=== PATIENT | male | born 1980 | race Caucasian/White ===

== ENCOUNTER → 2016-05-30 | Outpatient (CLI) | payer OTHER ==
[~2016-05-30] MED LIST: CEPH500C2 PO; CLIN300C2 PO; SULF800T23 PO
[2016-05-30 13:39] LABS: AST/SGOT 29 U/L (15-37); BLOOD UREA NITROGEN 13 mg/dl (7-18); BUN/CREATININE RATIO 12.6 (10-20); CALCIUM 9.6 mg/dl (8.5-10.1); CARBON DIOXIDE 25 mmol/L (21-32); CHLORIDE 108 mmol/L (98-107); GLUCOSE 98 mg/dl (70-99); POTASSIUM 4.3 mmol/L (3.5-5.1); SODIUM 142 mmol/L (136-145)
[2016-05-30 13:49] LABS: ALB/GLOB RATIO 1.2 (0.9-2); ALKALINE PHOSPHATASE 66 U/L (45-117); ALT/SGPT 107 U/L (12-78); CHOLESTEROL 212 mg/dl (0-200); CHOLESTEROL/HDL RATIO 6.4; HDL CHOLESTEROL 33 mg/dl; TRIGLYCERIDES 526 mg/dl (0-150)
== END | disposition home or self-care (01) ==
LOC: C.LABBC 10:15
PROVIDERS: ATTEND Internal Medicine
DX: Z00.00 Encounter for general adult medical examination without abnormal findings (principal); R03.0 Elevated blood-pressure reading, without diagnosis of hypertension

== ENCOUNTER 2016-10-17 21:14 | Emergency (ER) | payer SELFPAY ==
[~2016-10-17] VITALS: Ht 188 cm; Wt 129.9 kg
[2016-10-17 21:19] VITALS: Ht 188 cm; Wt 129.9 kg
[2016-10-17] MEDS ORDERED: CEPHALEXIN 500MG HOME PACK 1 EA BTL PO ONE (21:30)
[2016-10-17] MEDS ORDERED: DIPHTHERIA/TETANUS/PERTUSSIS 0.5 ML SYR/VIAL IM. ONE (21:30)
[2016-10-17] MEDS ORDERED: SEPTRA DS HOME PACK 1 EA VIAL PO ONE (21:30)
[2016-10-17] MEDS ORDERED: SULF800T23 PO (21:45)
[2016-10-17] MEDS ORDERED: CEPH500C2 PO (21:45)
[2016-10-17 21:51] VITALS: BP 152/90; PULSE 106; TEMP 36.6; O2SAT 96
--- NOTE | 2016-10-18 04:10 | EMERGENCY ROOM VISIT NOTE ---
History First contact with patient: 21:21 Chief Complaint: BITE Stated Complaint: BUG BITE,LUMP ON L LEG BEHIND KNEE History of Present Illness The patient is a 36 year old male who presents to the Emergency Room with complaints of left knee bug bite that is now effective for the past few days. He is unsure of his last tetanus. Patient complains of body aches without fever or chills. Patient denies chest pain, dyspnea, fever, chills, cough, congestion. No other concerns per patient. Review of Systems See HPI for pertinent positives & negatives. A total of 10 systems reviewed and were otherwise negative. Past Medical/Surgical History Medical Problems: (1) No Known Active Medical Problems Social History Smoking Status: Current Every Day Smoker Housing Status: lives with family Occupation Status: employed Current/Historical Medications Scheduled Cephalexin Monohydrate (Keflex), 500 MG PO QID Sulfa/Trimethoprim (Bactrim Ds 800MG/160MG), 1 TAB PO BID Allergies Coded Allergies: No Known Allergies (Unverified , 02/25/15) Physical Exam Vital Signs Date Time Temp Pulse Resp B/P (MAP) Pulse Ox O2 Delivery O2 Flow Rate FiO2 10/17/16 21:51 36.6 106 20 152/90 96 10/17/16 21:19 36.6 106 20 152/90 96 Room Air Pain Rating (0-10): 2.0 Physical Exam VITALS: Vitals are noted on the nurse's note and reviewed by myself. Vital signs stable. GENERAL: Pleasant male, in no acute distress, nondiaphoretic, well-developed well-nourished. SKIN: Left posterior knee with insect bite with surrounding erythema and edema concerning for infection with no palpable abscess or lymphangitis Capillary reflex less than 2 seconds. HEENT: Normocephalic. PERRLA. EOMI. Nares patent. Mucous membranes moist. Neck is supple without nuchal rigidity. HEART: Regular rate and rhythm without murmurs gallops or rubs. LUNGS: Clear to auscultation bilaterally without wheezes, rales or rhonchi. No retractions or accessory muscle use. ABDOMEN: Positive bowel sounds x 4. Normal tympanic percussion. Soft, nontender, without masses or organomegaly. Murdock sign negative. No guarding or rebound tenderness. MUSCULOSKELETAL: No gross musculoskeletal defects. No pedal edema. No calf tenderness. Left knee nontender to palpation with full range of motion NEURO: Patient was alert and oriented to person place and time. Normal sensation to light and sharp touch. No focal neurological deficits. Medical Decision & Procedures Medications Administered Medications (Trade) Dose Ordered Sig/Sandra Route Start Time Stop Time Status Last Admin Dose Admin Cephalexin Monohydrate (Keflex 500MG Home Pack) 1 homepack NOW ONCE PO 10/17/16 21:30 10/17/16 21:31 DC 10/17/16 21:41 1 HOMEPACK Trimethoprim/ Sulfamethoxazole (Sulfameth/ Trimeth Ds 800/ 160MG Home Pack) 1 homepack UD ONCE PO 10/17/16 21:30 10/17/16 21:31 DC 10/17/16 21:40 1 HOMEPACK Diphtheria/ Pertussis/Tetanus Vacc (Adacel Inj) 0.5 ml ONCE ONCE IM. 10/17/16 21:30 10/17/16 21:31 DC 10/17/16 21:40 0.5 ML ED Course Prior records reviewed and summarized as above. Triage Nursing notes reviewed. The patient's history was concerning for swelling and redness of the skin. Differential diagnosis: Etiologies such as infected insect bite, cellulitis, abscess, MRSA infection, DVT, necrotizing fasciitis, dermatitis, drug eruption, as well as others were entertained.. Physical examination: The physical examination was consistent with infected insect bite ER treatment provided: Keflex, Bactrim, tetanus On reassessment the patient felt better. Diagnostics interpreted by me: Deferred This appears to be isolated infected insect bite. Patient had no probable abscess or lymphangitis. He was started on antibiotics. He was advised follow- up family care in a few days or here in the ER sooner for fevers, spreading of infection, worsening signs or symptoms or as needed.. By the evaluation outlined above emergent etiologies such as abscess, necrotizing fasciitis, DVT, as well as others were deemed relatively unlikely. The pt informed about the findings as listed above. All questions were answered and pleased with the treatment. Return instructions were outlined and the patient was discharged in stable condition. Outpatient prescription management: Bactrim, Keflex Referral: The patient was referred back to primary care physician for follow-up in 2 to 3 days for a recheck of the current condition. Medical Decision As above Impression Primary Impression: Infected insect bite of leg Departure Information Dispostion Home / Self-Care Condition GOOD Prescriptions Sulfa/Trimethoprim (Bactrim Ds 800MG/160MG) Tab 1 TAB PO BID, #18 TAB Prov: Mary Grace Engle PA-C 10/17/16 Cephalexin Monohydrate (KEFLEX) 500 Mg Cap 500 MG PO QID, #36 CAP Prov: Mary Grace Engle PA-C 10/17/16 Forms HOME CARE DOCUMENTATION FORM, IMPORTANT VISIT INFORMATION Patient Instructions Cellulitis - [facility], [facility] Additional Instructions Cephalexin(Keflex) 500mg: Take one pill four times daily for 10 days for your skin infection. All antibiotics can cause diarrhea. If this occurs and you feel worse or it does not resolve in 1-2 days follow up with your doctor or return to the Emergency Department as this could be signs of serious underlying problems. Any medication can cause an allergic reaction, stop the pills immediately and return to the ER for rash, hives, breathing difficulties, or swelling. Trimethoprim-Sulfamethoxazole(Bactrim DS): Take one pill twice daily for 10 days for your skin infection. All antibiotics can cause diarrhea. If this occurs and you feel worse or it does not resolve in 1-2 days follow up with your doctor or return to the Emergency Department as this could be signs of serious underlying problems. Any medication can cause an allergic reaction, stop the pills immediately and return to the ER for rash, hives, breathing difficulties, or swelling. Ibuprofen(Motrin, Advil) may be used for fever or pain. Use 600mg every six hours as needed. Take with food. Avoid using more than 2400mg in a 24 hour period. Do not use 2400mg per day for more than three consecutive days without physician direction. Prolonged inappropriate use can lead to stomach upset or ulcers. (AND/OR) Acetaminophen(Tylenol) may be used for fever or pain. Use 1000mg every six hours as needed. Avoid using more than 3000mg in a 24 hour period. Warm compresses to the affected area 4 times daily for 15-20 minutes. Rest and drink plenty of fluids. Continue current medications. Return to the ER for severe pain, persistent fevers, spreading redness, or any worsening of your condition. Follow up with your primary physician within 2-3 days for a recheck of the current condition. Problem Qualifiers Primary Impression: Infected insect bite of leg Encounter type: initial encounter Laterality: left Qualified Codes: S80.862A - Insect bite (nonvenomous), left lower leg, initial encounter; L08.9 - Local infection of the skin and subcutaneous tissue, unspecified; W57.XXXA - Bitten or stung by nonvenomous insect and other nonvenomous arthropods, initial encounter
[2016-10-21] MEDS ORDERED: CLIN300C2 PO (08:13)
== END 2016-10-17 21:52 | disposition home or self-care (01) ==
LOC: C.EDB 21:15 → C.EDA 21:52
DX: S80.262A Insect bite (nonvenomous), left knee, initial encounter (principal); L08.9 Local infection of the skin and subcutaneous tissue, unspecified; W57.XXXA Bitten or stung by nonvenomous insect and other nonvenomous arthropods, initial encounter; F17.200 Nicotine dependence, unspecified, uncomplicated; Z23 Encounter for immunization

== ENCOUNTER 2016-10-18 22:37 | Inpatient (IN) | payer SELFPAY ==
[~2016-10-18] VITALS: Ht 188 cm; Wt 128.5 kg
[~2016-10-18 22:37] MED LIST changes: -CLIN300C2 PO
[2016-10-18 22:40] VITALS: Ht 188 cm; Wt 128.5 kg
[2016-10-18 23:38] LABS: HEMATOCRIT 39.6 % (42-52); MEAN CELL VOLUME 89.4 fL (80-100); MEAN CORPUSCULAR HEMOGLOBIN 30.7 pg (25-34); MEAN CORPUSCULAR HGB CONC 34.3 g/dl (32-36); MEAN PLATELET VOLUME 9.6 fL (7.4-10.4); PLATELET COUNT 222 K/uL (130-400); RED BLOOD COUNT 4.43 M/uL (4.7-6.1); WHITE BLOOD COUNT 9.48 K/uL (4.8-10.8)
[2016-10-18 23:50] LABS: PARTIAL THROMBOPLASTIN RATIO 1.2; PROTHROMBIN TIME (PATIENT) 10.3 SECONDS (9.0-12.0)
[2016-10-18 23:57] LABS: CALCIUM 8.7 mg/dl (8.5-10.1); CREATININE 1.1 mg/dl (0.60-1.40); POTASSIUM 3.7 mmol/L (3.5-5.1)
[2016-10-19] VITALS (7 sets, daily range): BP systolic 119–137; BP diastolic 78–82; PULSE 71–105; TEMP 36.7–38.1; O2SAT 94–99
[2016-10-19 00:16] LABS: BASO % 0.1 %; BASO ABS # 0.01 K/uL (0-0.2); COMPLETE YES; EOS % 0.4 %; IG% 0.2 %; LYMPH ABS # 0.85 K/uL (1.2-3.4); MONO % 10.1 %; NEUT % 80.2 %
[2016-10-19] MEDS ORDERED: CEFTRIAXONE SOD INJ 1 GM ADDVIAL IV STA (00:20)
[2016-10-19] MEDS ORDERED: VANCOMYCIN INJ 2,800 MG in SODIUM CHLORIDE 0.9% 500ML 500 ML IV STA (00:20)
[2016-10-19] MEDS ORDERED: KETOROLAC TROMETHAMINE 30 MG/ML VIAL IV STA (00:30)
[2016-10-19] MEDS ORDERED: ONDANSETRON INJ 2 MG/ML 2 ML VIAL IV PRN (01:15)
[2016-10-19] MEDS ORDERED: POLYETHYLENE (MIRALAX) 17 GM PACK PO PRN (01:30)
--- NOTE | 2016-10-19 02:19 | History and Physical ---
History & Physical Date & Time of Service: Oct 19, 2016 at 01:58 Chief Complaint: Cellulitis Primary Care Physician: Dhaval Brown M.D. History of Present Illness Source: patient, parent 36-year-old male with no significant past medical history presented to the ER with complaints of a swelling in the posterior aspect of his knee which started about 2 days ago. The patient stated that the swelling was about the size of the nickel initially and eventually progressed to about half a cent in size. His mother had used a sterile needle and expressed a small quantity of pus and serous drainage. He presented to the ER yesterday and was discharged with Keflex and Bactrim. He presented today with low-grade fever, chills, generalized body aches, nausea and vomiting and a redness around the swelling. He cannot recollect an insect bite. Denies any abdominal pain and diarrhea. Denies any urinary symptoms, coughing or shortness of breath Past Medical/Surgical History Medical Problems: (1) No Known Active Medical Problems Status: Chronic Social History Smoking Status: Current Every Day Smoker Occupational Status: employed [employer]-Drug [employer] History of MDRO: No Allergies Coded Allergies: No Known Allergies (Unverified , 02/25/15) Home Medications Scheduled Cephalexin Monohydrate (Keflex), 500 MG PO QID Sulfa/Trimethoprim (Bactrim Ds 800MG/160MG), 1 TAB PO BID Review of Systems Constitutional: + fever, + chills, + sweats, No weakness Eyes: No worsening of vision ENT: No hearing loss, No unusual epistaxis Respiratory: No cough, No sputum, No shortness of breath Cardiovascular: No chest pain Abdomen: + nausea, + vomiting, No pain, No diarrhea, No constipation Musculoskeletal: + problem reported (swelling and redness posterior knee) Genitourinary - Male: No hematuria Neurologic: No memory loss, No paralysis, No weakness Endocrine: No fatigue Hematologic / Lymphatic: No abnormal bleeding/bruising Integumentary: No rash Physical Exam Vital Signs Date Time Temp Pulse Resp B/P (MAP) Pulse Ox O2 Delivery O2 Flow Rate FiO2 10/19/16 01:48 36.7 91 18 127/79 (95) 94 Room Air 10/19/16 01:28 37.3 89 16 119/73 95 10/19/16 00:51 Room Air 10/19/16 00:40 37.3 93 16 117/66 96 Room Air 10/18/16 22:40 36.9 103 20 144/78 95 Room Air General Appearance: WD/WN, + mild distress Eyes: normal inspection ENT: hearing grossly normal Neck: supple Respiratory/Chest: chest non-tender, lungs clear, normal breath sounds, no respiratory distress, no accessory muscle use Abdomen/GI: normal bowel sounds, soft Back: no CVA tenderness Extremities/Musculoskelatal: no calf tenderness, no pedal edema, + pertinent finding (swelling in the posterior knee area, erythematous, warm and tender to palpation. Underlying fluctuance with serous drainage) Neurologic/Psych: alert, normal mood/affect, oriented x 3 Skin: normal color Diagnostics Laboratory Results Results Past 24 Hours Test 10/18/16 23:20 10/18/16 23:33 Range/Units White Blood Count 9.48 4.8-10.8 K/uL Red Blood Count 4.43 4.7-6.1 M/uL Hemoglobin 13.6 14.0-18.0 g/dL Hematocrit 39.6 42-52 % Mean Corpuscular Volume 89.4 80-100 fL Mean Corpuscular Hemoglobin 30.7 25-34 pg Mean Corpuscular Hemoglobin Concent 34.3 32-36 g/dl Platelet Count 222 130-400 K/uL Mean Platelet Volume 9.6 7.4-10.4 fL Neutrophils (%) (Auto) 80.2 % Lymphocytes (%) (Auto) 9.0 % Monocytes (%) (Auto) 10.1 % Eosinophils (%) (Auto) 0.4 % Basophils (%) (Auto) 0.1 % Neutrophils # (Auto) 7.60 1.4-6.5 K/uL Lymphocytes # (Auto) 0.85 1.2-3.4 K/uL Monocytes # (Auto) 0.96 0.11-0.59 K/uL Eosinophils # (Auto) 0.04 0-0.5 K/uL Basophils # (Auto) 0.01 0-0.2 K/uL RDW Standard Deviation 42.5 36.4-46.3 fL RDW Coefficient of Variation 13.0 11.5-14.5 % Immature Granulocyte % (Auto) 0.2 % Immature Granulocyte # (Auto) 0.02 0.00-0.02 K/uL Prothrombin Time 10.3 9.0-12.0 SECONDS Prothromb Time International Ratio 1.0 0.9-1.1 Activated Partial Thromboplast Time 31.2 21.0-31.0 SECONDS Partial Thromboplastin Ratio 1.2 Sodium Level 139 136-145 mmol/L Potassium Level 3.7 3.5-5.1 mmol/L Chloride Level 105 98-107 mmol/L Carbon Dioxide Level 25 21-32 mmol/L Anion Gap 9.0 3-11 mmol/L Blood Urea Nitrogen 8 7-18 mg/dl Creatinine 1.10 0.60-1.40 mg/dl Est Creatinine Clear Calc Drug Dose 132.0 ml/min Estimated GFR () 99.6 Estimated GFR (Non- 85.9 BUN/Creatinine Ratio 7.0 10-20 Random Glucose 109 70-99 mg/dl Calcium Level 8.7 8.5-10.1 mg/dl Total Bilirubin 0.7 0.2-1 mg/dl Aspartate Amino Transf (AST/SGOT) 62 15-37 U/L Alanine Aminotransferase (ALT/SGPT) 123 12-78 U/L Alkaline Phosphatase 61 45-117 U/L Total Protein 7.5 6.4-8.2 gm/dl Albumin 3.7 3.4-5.0 gm/dl Globulin 3.8 2.5-4.0 gm/dl Albumin/Globulin Ratio 1.0 0.9-2 Hepatitis B Surface Antigen NEG NEG Hepatitis C Antibody NEG NEG Bedside Lactic Acid Venous 1.31 0.90-1.70 mmol/L Microbiology Results 10/18/16 Blood Culture, Received Pending 10/18/16 Blood Culture, Received Pending Impression Assessment and Plan 36-year-old male with no significant past medical history presented to the ER with complaints of a swelling in the posterior aspect of his knee which started about 2 days ago. Failed outpatient treatment with Bactrim and Keflex. Unsure about an insect bite Cellulitis with underlying abscess - Abscess was drained at home with sterile needle - Failed outpatient treatment with Bactrim and Keflex - Started on vancomycin and Rocephin Transaminitis: - AST at 32, ALT at 123 - Denies alcohol abuse - Hepatitis panel ordered History of smoking: Smokes about a pack per day - NicoDerm patch - Smoking cessation counseling DVT prophylaxis: Heparin subcutaneous Full code Disposition: Admitted to [facility] Resident Physician Supervision Note: Pt seen/examined independently. I discussed the case with the resident and agree with the findings and plan as documented in the note. Any exceptions or clarifications are listed here: 36 y/o M smoker - denies additional Hx Pt developed cellulitis and an abscess behind knee - failed outpt Keflex and Bactrim - developed SIRS symptoms OE AAO x 3 S1,2 R CTAB NT, ND + ruptured abscess LLE P; Placed on Ceftriaxone/Vanc pending culture results Smoking cessation Incidental LFT elevation - denies ETOH abuse - check Hep panel - f/u as outpt if stable Documented By: Ghassan Shah Level of Care Med/Surg Resuscitation Status FULL RESUSCITATION VTE Prophylaxis VTE Risk Assessment Done? Y/N: Yes Risk Level: Moderate Given or contraindicated: Unfractionated heparin SQ Resident Tracking Resident Involvement: Resident Care Provided Care Provided: Adult Hospital Medicine
[2016-10-19] MEDS ORDERED: VANCOMYCIN CONSULT ACTIVE PRN (03:00)
--- NOTE | 2016-10-19 03:41 | EMERGENCY ROOM VISIT NOTE ---
History First contact with patient: 22:54 Chief Complaint: BITE Stated Complaint: CELLULITIS History of Present Illness The patient is a 36 year old male who presents to the Emergency Room with complaints of increasing infection to the left leg who was seen by myself yesterday and placed on Keflex and Bactrim. Patient states since that is developed a fever with nausea and vomiting. Patient denies chest pain, dyspnea , abdominal pain, diarrhea, urinary symptoms. He complains of myalgias and arthralgias. He feels as if the infection is getting worse. Review of Systems See HPI for pertinent positives & negatives. A total of 10 systems reviewed and were otherwise negative. Past Medical/Surgical History Medical Problems: (1) Cellulitis (2) No Known Active Medical Problems Social History Smoking Status: Current Every Day Smoker Housing Status: lives with family Occupation Status: employed Current/Historical Medications Scheduled Cephalexin Monohydrate (Keflex), 500 MG PO QID Sulfa/Trimethoprim (Bactrim Ds 800MG/160MG), 1 TAB PO BID Allergies Coded Allergies: No Known Allergies (Unverified , 02/25/15) Physical Exam Vital Signs Date Time Temp Pulse Resp B/P (MAP) Pulse Ox O2 Delivery O2 Flow Rate FiO2 10/19/16 00:51 Room Air 10/19/16 00:40 37.3 93 16 117/66 96 Room Air 10/18/16 22:40 36.9 103 20 144/78 95 Room Air Pain Rating (0-10): 3.0 Physical Exam VITALS: Vitals are noted on the nurse's note and reviewed by myself. Vital signs stable. GENERAL: Pleasant male, in no acute distress, nondiaphoretic, well-developed well-nourished. SKIN: Left leg posterior aspect of knee with cellulitis that has increased from yesterday without lymphangitis without palpable abscess The~ skin was without rashes, erythema, edema, or bruising. There is no tenting of the skin. Capillary reflex less than 2 seconds. HEAD: Normocephalic atraumatic. EARS: External auditory canals clear, tympanic membranes pearly nelson without erythema or effusion bilaterally. EYES: Pupils equal round and reactive to light and accommodation. Conjunctivae without injection, sclerae without icterus. Extraocular movements intact. NOSE: Patent, turbinates without inflammation or discharge. MOUTH: Mucous membranes moist. Pharynx without erythema or exudate. Uvula midline. Airway patent. Tongue does not deviate. NECK: Supple without nuchal rigidity. No lymphadenopathy. No thyromegaly. Cervical spine is nontender. No JVD. HEART: Regular rate and rhythm without murmurs gallops or rubs. LUNGS: Clear to auscultation bilaterally without wheezes, rales or rhonchi. No dullness to percussion. No retractions or accessory muscle use. ABDOMEN: Positive bowel sounds x 4. Normal tympanic percussion. Soft, nontender, without masses or organomegaly. Murdock sign negative. No guarding or rebound tenderness. MUSCULOSKELETAL: No muscle atrophy, erythema, or edema noted. Left knee nontender to palpation. No signs of joint infection. NEURO: Patient was alert and oriented to person place and time. Normal sensation to light and sharp touch. No focal neurological deficits. Medical Decision & Procedures Laboratory Results 10/18/16 23:20 Red Blood Count 4.43, Mean Corpuscular Volume 89.4, Mean Corpuscular Hemoglobin 30.7, Mean Corpuscular Hemoglobin Concent 34.3, Mean Platelet Volume 9.6, Neutrophils (%) (Auto) 80.2, Lymphocytes (%) (Auto) 9.0, Monocytes (%) (Auto) 10.1, Eosinophils (%) (Auto) 0.4, Basophils (%) (Auto) 0.1, Neutrophils # (Auto ) 7.60, Lymphocytes # (Auto) 0.85, Monocytes # (Auto) 0.96, Eosinophils # (Auto ) 0.04, Basophils # (Auto) 0.01 10/18/16 23:20 Test 10/18/16 23:20 10/18/16 23:33 White Blood Count 9.48 K/uL (4.8-10.8) Red Blood Count 4.43 M/uL (4.7-6.1) Hemoglobin 13.6 g/dL (14.0-18.0) Hematocrit 39.6 % (42-52) Mean Corpuscular Volume 89.4 fL (80-100) Mean Corpuscular Hemoglobin 30.7 pg (25-34) Mean Corpuscular Hemoglobin Concent 34.3 g/dl (32-36) Platelet Count 222 K/uL (130-400) Mean Platelet Volume 9.6 fL (7.4-10.4) Neutrophils (%) (Auto) 80.2 % Lymphocytes (%) (Auto) 9.0 % Monocytes (%) (Auto) 10.1 % Eosinophils (%) (Auto) 0.4 % Basophils (%) (Auto) 0.1 % Neutrophils # (Auto) 7.60 K/uL (1.4-6.5) Lymphocytes # (Auto) 0.85 K/uL (1.2-3.4) Monocytes # (Auto) 0.96 K/uL (0.11-0.59) Eosinophils # (Auto) 0.04 K/uL (0-0.5) Basophils # (Auto) 0.01 K/uL (0-0.2) RDW Standard Deviation 42.5 fL (36.4-46.3) RDW Coefficient of Variation 13.0 % (11.5-14.5) Immature Granulocyte % (Auto) 0.2 % Immature Granulocyte # (Auto) 0.02 K/uL (0.00-0.02) Prothrombin Time 10.3 SECONDS (9.0-12.0) Prothromb Time International Ratio 1.0 (0.9-1.1) Activated Partial Thromboplast Time 31.2 SECONDS (21.0-31.0) Partial Thromboplastin Ratio 1.2 Anion Gap 9.0 mmol/L (3-11) Est Creatinine Clear Calc Drug Dose 132.0 ml/min Estimated GFR () 99.6 Estimated GFR (Non- 85.9 BUN/Creatinine Ratio 7.0 (10-20) Calcium Level 8.7 mg/dl (8.5-10.1) Total Bilirubin 0.7 mg/dl (0.2-1) Aspartate Amino Transf (AST/SGOT) 62 U/L (15-37) Alanine Aminotransferase (ALT/SGPT) 123 U/L (12-78) Alkaline Phosphatase 61 U/L (45-117) Total Protein 7.5 gm/dl (6.4-8.2) Albumin 3.7 gm/dl (3.4-5.0) Globulin 3.8 gm/dl (2.5-4.0) Albumin/Globulin Ratio 1.0 (0.9-2) Hepatitis B Surface Antigen NEG (NEG) Hepatitis C Antibody NEG (NEG) Bedside Lactic Acid Venous 1.31 mmol/L (0.90-1.70) Medications Administered Medications (Trade) Dose Ordered Sig/Sandra Route Start Time Stop Time Status Last Admin Dose Admin Ceftriaxone Sodium (Rocephin Inj) 1 gm NOW STAT IV 10/19/16 00:20 10/19/16 00:22 DC 10/19/16 00:28 1 GM Vancomycin HCl 2800 mg/Sodium Chloride 556 ml @ 200 mls/hr ONE STAT IV 10/19/16 00:20 10/19/16 03:06 DC 10/19/16 01:00 200 MLS/HR Ketorolac Tromethamine (Toradol Inj) 30 mg NOW STAT IV 10/19/16 00:30 10/19/16 00:31 DC 10/19/16 00:46 30 MG ED Course Prior records reviewed and summarized as above. Triage Nursing notes reviewed. Additional history obtained from family. The patient's history was concerning for swelling and redness of the skin. Differential diagnosis: Etiologies such as cellulitis, abscess, MRSA infection, DVT, necrotizing fasciitis, dermatitis, drug eruption, as well as others were entertained.. Physical examination: The physical examination was consistent with cellulitis ER treatment provided: Rocephin, vancomycin On reassessment the patient felt better. Diagnostics interpreted by me: The labs revealed negative lactic acid Consultation: A consultation was placed with Dr Shah, hospitalist. The case was discussed and diagnostics were reviewed. The patient was evaluated in the ER for further treatment. This appears to be isolated cellulitis. Patient's infection has spread. He is now displaying systemic symptoms. He will be evaluated by medicine for possible admission. Blood cultures are pending. Negative lactic acid. No lymphangitis. No palpable abscess. By the evaluation outlined above emergent etiologies such as abscess, necrotizing fasciitis, DVT, as well as others were deemed relatively unlikely. The pt informed about the findings as listed above. All questions were answered and pleased with the treatment. case reviewed with my attending Medical Decision As above Impression Primary Impression: Infected insect bite of leg Additional Impressions: Failure of outpatient treatment Cellulitis of left leg Departure Information Dispostion Admitted as an inpatient Condition GOOD Referrals Dhaval Brown M.D. (PCP) Forms HOME CARE DOCUMENTATION FORM, IMPORTANT VISIT INFORMATION Patient Instructions [facility] Problem Qualifiers Primary Impression: Infected insect bite of leg Encounter type: initial encounter Laterality: left Qualified Codes: S80.862A - Insect bite (nonvenomous), left lower leg, initial encounter; L08.9 - Local infection of the skin and subcutaneous tissue, unspecified; W57.XXXA - Bitten or stung by nonvenomous insect and other nonvenomous arthropods, initial encounter
--- NOTE | 2016-10-19 05:56 | Pharmacy Progress Note ---
Pharmacy Abx Initial Consult Date of Service Oct 19, 2016. Pharmacy Dosing Scope Date of Consult: 10/19/16 Consultation requested by: Dr. Mcdaniel Pharmacy is consulted to continue IV Vancomycin dosing therapy, order appropriate labs and adjust drug dose/frequency. Subjective The patient is a 36 year old male admitted on Oct 19, 2016 at 01:08 with a abscess on his left knee. He had presented to the ED yesterday and was released with RX for Bactrim and Keflex. In addition his mother took a sterile needle to the area and produced some pus and blood. He returned today with malaise, fever some nausea & vomiting and is started on Rocephin and Vancomycin. Objective Height (Feet): 6 Height (Inches): 2.00 Weight (Kilograms): 128.500 Vital Signs (Past 12Hrs) Vital Signs Past 12 Hours Date Time Temp Pulse Resp B/P (MAP) Pulse Ox O2 Delivery O2 Flow Rate FiO2 10/19/16 04:41 Room Air 10/19/16 04:19 Room Air 10/19/16 01:48 36.7 91 18 127/79 (95) 94 Room Air 10/19/16 01:28 37.3 89 16 119/73 95 10/19/16 00:51 Room Air 10/19/16 00:40 37.3 93 16 117/66 96 Room Air 10/18/16 22:40 36.9 103 20 144/78 95 Room Air Lab Results (24Hrs) Laboratory Tests (24 Hours) Test 10/18/16 23:20 White Blood Count 9.48 K/uL (4.8-10.8) Red Blood Count 4.43 M/uL (4.7-6.1) L Hemoglobin 13.6 g/dL (14.0-18.0) L Hematocrit 39.6 % (42-52) L Mean Corpuscular Volume 89.4 fL (80-100) Mean Corpuscular Hemoglobin 30.7 pg (25-34) Mean Corpuscular Hemoglobin Concent 34.3 g/dl (32-36) Platelet Count 222 K/uL (130-400) Mean Platelet Volume 9.6 fL (7.4-10.4) Neutrophils (%) (Auto) 80.2 % Lymphocytes (%) (Auto) 9.0 % Monocytes (%) (Auto) 10.1 % Eosinophils (%) (Auto) 0.4 % Basophils (%) (Auto) 0.1 % Neutrophils # (Auto) 7.60 K/uL (1.4-6.5) H Lymphocytes # (Auto) 0.85 K/uL (1.2-3.4) L Monocytes # (Auto) 0.96 K/uL (0.11-0.59) H Eosinophils # (Auto) 0.04 K/uL (0-0.5) Basophils # (Auto) 0.01 K/uL (0-0.2) Micro Results Date/Time Source Procedure Growth Status 10/18/16 23:59 Blood Blood Culture Pending Received 10/18/16 23:20 Blood Blood Culture Pending Received Risk Factors for Resistance * Antimicrobial use within the last 90 days Keflex and Bactrim Assessment & Plan Assessment 36 year old male started on Vancomycin for abscess on his (L) knee Plan Rocephin 1gm IV daily Vancomycin for treatment of the abscess Vancomycin IV * Loading dose: 2800 mg (22 mg/kg) * Maintenance dose: 1700mg IV (13 mg/kg) every 8 hours * Goal trough level for abscess : 15-20 mcg/mL * Trough level ordered prior to noon dose on 10/20/16 * A less than traditional dose and/or extended dosing interval has been selected due to likelihood of drug accumulation in obese patient. I feel he is probably not at baseline renally and I estimated his half life at 6 hours. I think due to his bariatric nature he is prone to accumulation yet he may clear the Vancomycin nicely upon returning to baseline renal. Depending on his renal picture he could potentially handle an every 6 hour interval. Pharmacy will continue to follow and will adjust dose/frequency as necessary. Thank you.
[2016-10-19] MEDS: HEPARIN SOD 5000 UNIT/0.5 ML CARP SQ SCH ×3 (06:00→21:15)
[2016-10-19 06:29] LABS: CREATININE 1.1 mg/dl (0.60-1.40)
[2016-10-19] MEDS: ACETAMINOPHEN 325 MG TAB PO PRN ×3 (06:58→20:48)
[2016-10-19] MEDS: NICOTINE 21 MG/24 HR TDSY TD SCH (08:00)
[2016-10-19] MEDS ORDERED: IBUPROFEN 200 MG TAB PO STA (10:28)
--- NOTE | 2016-10-19 10:36 | Progress Note ---
Subjective Date of Service: Oct 19, 2016. Subjective Pt evaluation today including: conversation w/ patient, physical exam, chart review, lab review, review of studies, review of inpatient medication list Pain: no pain reported PO Intake: good pt is seen and examined by me. Pt is c/o of headache and fever. Pt has spiked a fever this morning an was given a tylenol. Pt denies Cp, Sob, dizziness, palpitation and LOC. Pt denies chills, sweats and rigors. Problem List Medical Problems: (1) Cellulitis of left leg Status: Acute (2) Failure of outpatient treatment Status: Acute (3) Infected insect bite of leg Status: Acute (4) Infected insect bite of leg Status: Acute Review of Systems Constitutional: + fever, No chills, No sweats Respiratory: No cough, No sputum, No wheezing, No shortness of breath, No dyspnea at rest Cardiac: No chest pain, No edema, No claudication Abdomen: No pain, No nausea, No vomiting, No diarrhea Musculoskeletal: + swelling (left popliteal area abscess and erythema and tenderness) Endo: No fatigue Medications Medications (Trade) Dose Ordered Sig/Sandra Route Start Time Stop Time Status Last Admin Dose Admin Ceftriaxone Sodium (Rocephin Inj) 1 gm NOW STAT IV 10/19/16 00:20 10/19/16 00:22 DC 10/19/16 00:28 1 GM Vancomycin HCl 2800 mg/Sodium Chloride 556 ml @ 200 mls/hr ONE STAT IV 10/19/16 00:20 10/19/16 03:06 DC 10/19/16 01:00 200 MLS/HR Ketorolac Tromethamine (Toradol Inj) 30 mg NOW STAT IV 10/19/16 00:30 10/19/16 00:31 DC 10/19/16 00:46 30 MG Acetaminophen (Tylenol Tab) 650 mg Q4H PRN PO 10/19/16 01:15 11/18/16 01:14 10/19/16 06:58 650 MG Objective Vital Signs Date Time Temp Pulse Resp B/P (MAP) Pulse Ox O2 Delivery O2 Flow Rate FiO2 10/19/16 07:11 38.0 105 20 137/78 (97) 99 Room Air 10/19/16 04:41 Room Air 10/19/16 04:19 Room Air 10/19/16 01:48 36.7 91 18 127/79 (95) 94 Room Air 10/19/16 01:28 37.3 89 16 119/73 95 10/19/16 00:51 Room Air 10/19/16 00:40 37.3 93 16 117/66 96 Room Air 10/18/16 22:40 36.9 103 20 144/78 95 Room Air Physical Exam General Appearance: no apparent distress Neck: supple, no adenopathy Respiratory/Chest: chest non-tender, lungs clear, normal breath sounds, no respiratory distress Cardiovascular: regular rate, rhythm, no edema, no gallop, no murmur Abdomen: normal bowel sounds, non tender, soft, no organomegaly Extremities: + pertinent finding ((swelling in the posterior knee area, erythematous, warm and tender to palpation. Underlying fluctuance with serous drainage)) Neurologic/Psychiatric: alert, normal mood/affect, oriented x 3 Skin: no rash Lymphatic: no adenopathy Laboratory Results Last 24 Hours Test 10/18/16 23:20 10/18/16 23:33 10/19/16 05:24 White Blood Count 9.48 K/uL Red Blood Count 4.43 M/uL Hemoglobin 13.6 g/dL Hematocrit 39.6 % Mean Corpuscular Volume 89.4 fL Mean Corpuscular Hemoglobin 30.7 pg Mean Corpuscular Hemoglobin Concent 34.3 g/dl Platelet Count 222 K/uL Mean Platelet Volume 9.6 fL Neutrophils (%) (Auto) 80.2 % Lymphocytes (%) (Auto) 9.0 % Monocytes (%) (Auto) 10.1 % Eosinophils (%) (Auto) 0.4 % Basophils (%) (Auto) 0.1 % Neutrophils # (Auto) 7.60 K/uL Lymphocytes # (Auto) 0.85 K/uL Monocytes # (Auto) 0.96 K/uL Eosinophils # (Auto) 0.04 K/uL Basophils # (Auto) 0.01 K/uL RDW Standard Deviation 42.5 fL RDW Coefficient of Variation 13.0 % Immature Granulocyte % (Auto) 0.2 % Immature Granulocyte # (Auto) 0.02 K/uL Prothrombin Time 10.3 SECONDS Prothromb Time International Ratio 1.0 Activated Partial Thromboplast Time 31.2 SECONDS Partial Thromboplastin Ratio 1.2 Sodium Level 139 mmol/L Potassium Level 3.7 mmol/L Chloride Level 105 mmol/L Carbon Dioxide Level 25 mmol/L Anion Gap 9.0 mmol/L Blood Urea Nitrogen 8 mg/dl Creatinine 1.10 mg/dl 1.10 mg/dl Est Creatinine Clear Calc Drug Dose 132.0 ml/min 132.3 ml/min Estimated GFR () 99.6 99.6 Estimated GFR (Non- 85.9 85.9 BUN/Creatinine Ratio 7.0 Random Glucose 109 mg/dl Calcium Level 8.7 mg/dl Total Bilirubin 0.7 mg/dl Aspartate Amino Transf (AST/SGOT) 62 U/L Alanine Aminotransferase (ALT/SGPT) 123 U/L Alkaline Phosphatase 61 U/L Total Protein 7.5 gm/dl Albumin 3.7 gm/dl Globulin 3.8 gm/dl Albumin/Globulin Ratio 1.0 Hepatitis B Surface Antigen NEG Hepatitis C Antibody NEG Bedside Lactic Acid Venous 1.31 mmol/L Assessment and Plan Cellulitis with underlying abscess - Abscess was drained at home with sterile needle? - Failed outpatient treatment with Bactrim and Keflex - Started on vancomycin and Rocephin however discuss with pharmacy to broader the coverage, pt is spiking fever while on antibiotics. - We will discontinue rocephin and add clindamycin along with cefepime. Fever - spike fever 38, possible need broader coverage - blood cultures pending - Prn Tylenol Transaminitis: - AST at 32, ALT at 123 - Denies alcohol abuse - Hepatitis panel negative - Repeat CMP. History of smoking: Smokes about a pack per day - NicoDerm patch - Smoking cessation counseling DVT prophylaxis: Heparin subcutaneous Full code Continued [facility] stay due to: multiple IV medications needed Discharge planning: home
[2016-10-19] MEDS: CEFEPIME IV 2000 MG in DEXTROSE 5% 100ML IV SCH (10:51)
[2016-10-19] MEDS ORDERED: CEFTRIAXONE SOD INJ 1 GM in DEXTROSE 5% ADD-VANTAGE 50ML 50 ML IV SCH (11:00)
[2016-10-19 11:02] LABS: BASO % 0.1 %; BASO ABS # 0.01 K/uL (0-0.2); COMPLETE YES; EOS % 0.3 %; HEMATOCRIT 37.2 % (42-52); IG% 0.1 %; LYMPH % 9.2 %; MEAN CELL VOLUME 90.3 fL (80-100); MEAN CORPUSCULAR HEMOGLOBIN 31.3 pg (25-34); MEAN CORPUSCULAR HGB CONC 34.7 g/dl (32-36); MEAN PLATELET VOLUME 9.2 fL (7.4-10.4); MONO % 9.9 %; NEUT % 80.4 %; PLATELET COUNT 192 K/uL (130-400); RED BLOOD COUNT 4.12 M/uL (4.7-6.1); WHITE BLOOD COUNT 8.66 K/uL (4.8-10.8)
[2016-10-19 11:41] LABS: BUN/CREATININE RATIO 8.9 (10-20); CALCIUM 8.4 mg/dl (8.5-10.1); CREATININE 1.1 mg/dl (0.60-1.40); POTASSIUM 3.7 mmol/L (3.5-5.1)
[2016-10-19] MEDS: CLINDAMYCIN IV 900 MG in DEXTROSE 5% ADD-VANTAGE 100ML 100 ML IV SCH ×2 (11:42→19:50)
[2016-10-19 11:51] LABS: ALB/GLOB RATIO 0.9 (0.9-2)
[2016-10-19] MEDS ORDERED: NURSING VERBAL MED ORDER ONE (12:00)
[2016-10-19] MEDS ORDERED: MoRPHine SULFATE 2 MG/ML CARP IV STA (12:07)
[2016-10-19] MEDS: VANCOMYCIN INJ 1,700 MG in SODIUM CHLORIDE 0.9% 500ML 500 ML IV SCH ×2 (12:52→21:14)
[2016-10-20] MEDS: CEFEPIME IV 2000 MG in DEXTROSE 5% 100ML IV SCH ×3 (00:04→22:39)
[2016-10-20] MEDS ORDERED: KETOROLAC TROMETHAMINE 30 MG/ML VIAL IV STA (00:38)
[2016-10-20] MEDS: CLINDAMYCIN IV 900 MG in DEXTROSE 5% ADD-VANTAGE 100ML 100 ML IV SCH ×3 (04:21→19:41)
[2016-10-20] MEDS: VANCOMYCIN INJ 1,700 MG in SODIUM CHLORIDE 0.9% 500ML 500 ML IV SCH ×3 (04:21→19:40)
[2016-10-20] MEDS: HEPARIN SOD 5000 UNIT/0.5 ML CARP SQ SCH ×3 (05:53→21:19)
[2016-10-20 07:20] LABS: BASO % 0.4 %; BASO ABS # 0.02 K/uL (0-0.2); COMPLETE YES; EOS % 2.1 %; HEMATOCRIT 36.6 % (42-52); IG% 0.2 %; LYMPH ABS # 1.32 K/uL (1.2-3.4); MEAN CORPUSCULAR HEMOGLOBIN 31.1 pg (25-34); MEAN CORPUSCULAR HGB CONC 34.2 g/dl (32-36); MEAN PLATELET VOLUME 9.9 fL (7.4-10.4); MONO % 21.2 %; NEUT % 51.1 %; PLATELET COUNT 201 K/uL (130-400); RED BLOOD COUNT 4.02 M/uL (4.7-6.1); WHITE BLOOD COUNT 5.29 K/uL (4.8-10.8)
[2016-10-20 07:47] VITALS: BP 122/81; PULSE 74; TEMP 36.9; O2SAT 98
[2016-10-20] MEDS: NICOTINE 21 MG/24 HR TDSY TD SCH (07:47)
[2016-10-20 07:52] LABS: BUN/CREATININE RATIO 12.4 (10-20); CALCIUM 8.6 mg/dl (8.5-10.1); CREATININE 0.87 mg/dl (0.60-1.40); POTASSIUM 3.8 mmol/L (3.5-5.1)
[2016-10-20 07:55] LABS: ALB/GLOB RATIO 0.9 (0.9-2)
[2016-10-20 08:00] VITALS: O2SAT 98
[2016-10-20] MEDS ORDERED: KETOROLAC TROMETHAMINE 30 MG/ML VIAL ONE (08:19)
[2016-10-20] MEDS ORDERED: NURSING VERBAL MED ORDER ONE (08:30)
[2016-10-20] MEDS ORDERED: CEFTRIAXONE SOD INJ 1 GM in DEXTROSE 5% ADD-VANTAGE 50ML 50 ML IV SCH (11:00)
[2016-10-20] MEDS ORDERED: VANCOMYCIN TROUGH SCH (11:30)
--- NOTE | 2016-10-20 14:46 | Pharmacy Progress Note ---
Pharmacy Abx Dose Progress Nt Date of Service Oct 20, 2016. Pharmacy Dosing Scope The patient is currently receiving the following antimicrobial agents per Pharmacy consult: Vancomycin 1700mg mg (~13.2 mg/kg) IV every 8 hours Objective Height (Feet): 6 Height (Inches): 2.00 Weight (Kilograms): 128.500 Vital Signs (Past 12Hrs) Vital Signs Past 12 Hours Date Time Temp Pulse Resp B/P (MAP) Pulse Ox O2 Delivery O2 Flow Rate FiO2 10/20/16 08:00 98 Room Air 10/20/16 07:47 36.9 74 18 122/81 (95) 98 Room Air Lab Results (24Hrs) Laboratory Tests (24 Hours) Item Value Date Time Vancomycin Level Trough 14.3 mcg/ml 10/20/16 1155 Test 10/20/16 06:25 White Blood Count 5.29 K/uL (4.8-10.8) Red Blood Count 4.02 M/uL (4.7-6.1) L Hemoglobin 12.5 g/dL (14.0-18.0) L Hematocrit 36.6 % (42-52) L Mean Corpuscular Volume 91.0 fL (80-100) Mean Corpuscular Hemoglobin 31.1 pg (25-34) Mean Corpuscular Hemoglobin Concent 34.2 g/dl (32-36) Platelet Count 201 K/uL (130-400) Mean Platelet Volume 9.9 fL (7.4-10.4) Neutrophils (%) (Auto) 51.1 % Lymphocytes (%) (Auto) 25.0 % Monocytes (%) (Auto) 21.2 % Eosinophils (%) (Auto) 2.1 % Basophils (%) (Auto) 0.4 % Neutrophils # (Auto) 2.71 K/uL (1.4-6.5) Lymphocytes # (Auto) 1.32 K/uL (1.2-3.4) Monocytes # (Auto) 1.12 K/uL (0.11-0.59) H Eosinophils # (Auto) 0.11 K/uL (0-0.5) Basophils # (Auto) 0.02 K/uL (0-0.2) Micro Results Date/Time Source Procedure Growth Status 10/18/16 23:59 Blood Blood Culture - Preliminary NO GROWTH TO DATE. Resulted 10/18/16 23:20 Blood Blood Culture - Preliminary NO GROWTH TO DATE. Resulted Risk Factors for Resistance * Failing outpatient antimicrobial course with this infection initiated 1 day COLLECTIONS REPRESENTATIVE Assessment & Plan Assessment The patient is a 36 year old male admitted on Oct 19, 2016 at 01:08 with a abscess on his left knee. He had presented to the ED yesterday and was released with RX for Bactrim and Keflex. In addition his mother took a sterile needle to the area and produced some pus and blood. He returned today with malaise, fever some nausea & vomiting and is started on IV Vancomycin, Clindamycin and Cefepime Patient with BMI 36.4 kg/m2 thus will anticipate the potential for IV Vancomycin to accumulate during this course of therapy. For this reason, a lower maintenance dose of ~13 mg/kg has been chosen. Day # 2 Vancomycin of antimicrobial therapy Plan Vancomycin IV * Trough level of 14.3 mcg/mL is closely approaching the therapeutic range. * Continue dose of 1700 mg (~13 mg/kg) IV every 8 hours * Goal trough level for Cellulitis/abscess: 15 to 20 mcg/mL * Due to potential for drug accumulation in patients with BMI above 30 kg/m2, will repeat trough in ~ 48 hours * Trough or random level ordered for: Thursday10/22/16 prior to the noon dose Pharmacy will continue to follow and will adjust dose/frequency as necessary. Thank you.
[2016-10-20 15:10] VITALS: BP 125/78; PULSE 73; TEMP 36.7; O2SAT 96
--- NOTE | 2016-10-20 15:52 | Medical Student: [facility] ---
Med Student Progress Note Date of Service Oct 20, 2016. Subjective 36 y/o male with no significant pmh who presented on thursday and then thursday with worsening cellulitis of posterior aspect of left knee and generalized fever , myalgias, sweats. He has been afebrile with no acute events overnight. He feels better today, and his knee is no longer in pain. He has been able to ambulate on it. He complains of itchiness. He denies any systemic symptoms. He denies noticing any tick or bug/spider bites. He was sitting outside mid-last week in shorts and suspects this may have been when the event occurred. Review of Systems Constitutional: No fever, No chills ENT: No sore throat Respiratory: No cough, No sputum, No wheezing, No shortness of breath Cardiac: No chest pain, No edema Abdomen: No pain, No nausea, No vomiting, No diarrhea, No constipation Musculoskeletal: No joint pain, No muscle pain, No swelling Male : No dysuria Heme: No abnormal bleeding/bruising Skin: + itch, No rash, No new/changing skin lesions, No color change Objective Vital Signs Date Time Temp Pulse Resp B/P (MAP) Pulse Ox O2 Delivery O2 Flow Rate FiO2 10/20/16 15:10 36.7 73 18 125/78 (94) 96 Room Air 10/20/16 08:00 98 Room Air 10/20/16 07:47 36.9 74 18 122/81 (95) 98 Room Air 10/19/16 23:59 Room Air 10/19/16 23:54 36.9 71 18 119/78 (92) 97 Room Air 10/19/16 20:00 Room Air 10/19/16 16:22 Room Air Physical Exam General Appearance: WD/WN, no apparent distress Neck: supple, no adenopathy, thyroid normal, no JVD Respiratory/Chest: chest non-tender, lungs clear, normal breath sounds, no respiratory distress, no accessory muscle use Cardiovascular: regular rate, rhythm, no edema, no JVD, no murmur Abdomen: normal bowel sounds, non tender, soft, no organomegaly Extremities: no pedal edema, no calf tenderness, + pertinent finding (left leg demonstrating ~5 inch diameter of surrounding erythema around central lesion. Central lesion has savage exudate and moist appearance. ) Neurologic/Psychiatric: alert, normal mood/affect, oriented x 3 Skin: normal color, warm/dry, no rash Lymphatic: no adenopathy Laboratory Results Last 24 Hours Test 10/20/16 06:25 10/20/16 11:55 White Blood Count 5.29 K/uL Red Blood Count 4.02 M/uL Hemoglobin 12.5 g/dL Hematocrit 36.6 % Mean Corpuscular Volume 91.0 fL Mean Corpuscular Hemoglobin 31.1 pg Mean Corpuscular Hemoglobin Concent 34.2 g/dl Platelet Count 201 K/uL Mean Platelet Volume 9.9 fL Neutrophils (%) (Auto) 51.1 % Lymphocytes (%) (Auto) 25.0 % Monocytes (%) (Auto) 21.2 % Eosinophils (%) (Auto) 2.1 % Basophils (%) (Auto) 0.4 % Neutrophils # (Auto) 2.71 K/uL Lymphocytes # (Auto) 1.32 K/uL Monocytes # (Auto) 1.12 K/uL Eosinophils # (Auto) 0.11 K/uL Basophils # (Auto) 0.02 K/uL RDW Standard Deviation 44.3 fL RDW Coefficient of Variation 13.3 % Immature Granulocyte % (Auto) 0.2 % Immature Granulocyte # (Auto) 0.01 K/uL Sodium Level 140 mmol/L Potassium Level 3.8 mmol/L Chloride Level 106 mmol/L Carbon Dioxide Level 26 mmol/L Anion Gap 8.0 mmol/L Blood Urea Nitrogen 11 mg/dl Creatinine 0.87 mg/dl Est Creatinine Clear Calc Drug Dose 167.3 ml/min Estimated GFR () 128.7 Estimated GFR (Non- 111.0 BUN/Creatinine Ratio 12.4 Random Glucose 101 mg/dl Calcium Level 8.6 mg/dl Total Bilirubin 0.7 mg/dl Aspartate Amino Transf (AST/SGOT) 54 U/L Alanine Aminotransferase (ALT/SGPT) 123 U/L Alkaline Phosphatase 51 U/L Total Protein 6.5 gm/dl Albumin 3.0 gm/dl Globulin 3.5 gm/dl Albumin/Globulin Ratio 0.9 Vancomycin Level Trough 14.3 mcg/ml Medications Medications Administered Medications (Trade) Dose Ordered Sig/Sandra Route Start Time Stop Time Status Last Admin Dose Admin Ceftriaxone Sodium (Rocephin Inj) 1 gm NOW STAT IV 10/19/16 00:20 10/19/16 00:22 DC 10/19/16 00:28 1 GM Vancomycin HCl 2800 mg/Sodium Chloride 556 ml @ 200 mls/hr ONE STAT IV 10/19/16 00:20 10/19/16 03:06 DC 10/19/16 01:00 200 MLS/HR Ketorolac Tromethamine (Toradol Inj) 30 mg NOW STAT IV 10/19/16 00:30 10/19/16 00:31 DC 10/19/16 00:46 30 MG Acetaminophen (Tylenol Tab) 650 mg Q4H PRN PO 10/19/16 01:15 11/18/16 01:14 10/19/16 20:48 650 MG Ondansetron HCl (Zofran Inj) 4 mg Q6H PRN IV 10/19/16 01:15 11/18/16 01:14 10/19/16 12:10 4 MG Vancomycin HCl 1700 mg/Sodium Chloride 534 ml @ 200 mls/hr Q8H IV 10/19/16 12:00 10/29/16 11:59 10/20/16 11:54 200 MLS/HR Cefepime HCl 2000 mg/Dextrose 112.5 ml @ 225 mls/hr Q12H IV 10/19/16 11:00 10/29/16 10:59 10/20/16 11:22 225 MLS/HR Clindamycin Phosphate 900 mg/ Dextrose 106 ml @ 106 mls/hr Q8H IV 10/19/16 12:00 10/29/16 11:59 10/20/16 11:54 106 MLS/HR Ibuprofen (Advil Tab) 400 mg NOW STAT PO 10/19/16 10:28 10/19/16 10:35 DC 10/19/16 10:56 400 MG Morphine Sulfate (MoRPHine SULFATE INJ) 2 mg NOW STAT IV 10/19/16 12:07 10/19/16 12:08 DC 10/19/16 12:12 2 MG Ketorolac Tromethamine (Toradol Inj) 30 mg NOW STAT IV 10/20/16 00:38 10/20/16 00:49 DC 10/20/16 00:57 30 MG Ketorolac Tromethamine (Toradol Inj) 30 mg STK-MED ONCE .ROUTE 10/20/16 08:19 10/20/16 08:20 DC 10/20/16 08:21 30 MG Assessment and Plan Assessment and Plan: This is a 36 y/o male with cellulitis of left knee. 1. Cellulitis left knee -continue IV vancomycin, clindamycin, cefepime -consult wound care nurses for eval of possible debridement/cleaning of wound -continue to monitor until tomorrow -acetaminophen 650 mg q4hr prn 2. Elevated transaminases -trending down, continue to monitor 3. DVT prophylaxis -Heparin subq Continued [facility] stay due to: multiple IV medications needed Discharge planning: home
[2016-10-20 16:00] VITALS: O2SAT 96
--- NOTE | 2016-10-20 18:18 | Progress Note ---
Subjective Date of Service: Oct 20, 2016. Subjective pt states hs somatic symptoms have improved, leg less painful and overall feels better, some scant drainage from wound Problem List Medical Problems: (1) Cellulitis of left leg Status: Acute (2) Failure of outpatient treatment Status: Acute (3) Infected insect bite of leg Status: Acute (4) Infected insect bite of leg Status: Acute Review of Systems Constitutional: No fever, No chills Respiratory: No cough, No sputum Cardiac: No chest pain, No orthopnea Abdomen: No pain, No nausea, No constipation Musculoskeletal: + joint pain, + muscle pain Psychiatric: No depression symptoms, No anhedonism Skin: + rash, + new/changing skin lesions, + color change Objective Vital Signs Date Time Temp Pulse Resp B/P (MAP) Pulse Ox O2 Delivery O2 Flow Rate FiO2 10/20/16 07:47 36.9 74 18 122/81 (95) 98 Room Air 10/19/16 23:59 Room Air 10/19/16 23:54 36.9 71 18 119/78 (92) 97 Room Air 10/19/16 20:00 Room Air 10/19/16 16:22 Room Air 10/19/16 15:44 37.5 78 18 127/82 (97) 97 Room Air 10/19/16 13:36 37.8 10/19/16 11:47 37.4 10/19/16 10:29 38.1 Physical Exam General Appearance: WD/WN, + mild distress Neck: supple, no JVD Respiratory/Chest: chest non-tender, lungs clear, normal breath sounds Cardiovascular: regular rate, rhythm, no murmur Abdomen: normal bowel sounds, non tender, soft Extremities: no pedal edema, no calf tenderness Neurologic/Psychiatric: alert, oriented x 3 Skin: + pertinent finding (1x5 cm open area with macerated tissue and 2 cm surrounding erythmea in left pop fossa, no flucutance or lymphangitic streaking) Laboratory Results Last 24 Hours Test 10/19/16 10:55 10/20/16 06:25 White Blood Count 8.66 K/uL 5.29 K/uL Red Blood Count 4.12 M/uL 4.02 M/uL Hemoglobin 12.9 g/dL 12.5 g/dL Hematocrit 37.2 % 36.6 % Mean Corpuscular Volume 90.3 fL 91.0 fL Mean Corpuscular Hemoglobin 31.3 pg 31.1 pg Mean Corpuscular Hemoglobin Concent 34.7 g/dl 34.2 g/dl Platelet Count 192 K/uL 201 K/uL Mean Platelet Volume 9.2 fL 9.9 fL Neutrophils (%) (Auto) 80.4 % 51.1 % Lymphocytes (%) (Auto) 9.2 % 25.0 % Monocytes (%) (Auto) 9.9 % 21.2 % Eosinophils (%) (Auto) 0.3 % 2.1 % Basophils (%) (Auto) 0.1 % 0.4 % Neutrophils # (Auto) 6.95 K/uL 2.71 K/uL Lymphocytes # (Auto) 0.80 K/uL 1.32 K/uL Monocytes # (Auto) 0.86 K/uL 1.12 K/uL Eosinophils # (Auto) 0.03 K/uL 0.11 K/uL Basophils # (Auto) 0.01 K/uL 0.02 K/uL RDW Standard Deviation 43.2 fL 44.3 fL RDW Coefficient of Variation 13.0 % 13.3 % Immature Granulocyte % (Auto) 0.1 % 0.2 % Immature Granulocyte # (Auto) 0.01 K/uL 0.01 K/uL Sodium Level 140 mmol/L 140 mmol/L Potassium Level 3.7 mmol/L 3.8 mmol/L Chloride Level 105 mmol/L 106 mmol/L Carbon Dioxide Level 24 mmol/L 26 mmol/L Anion Gap 11.0 mmol/L 8.0 mmol/L Blood Urea Nitrogen 10 mg/dl 11 mg/dl Creatinine 1.10 mg/dl 0.87 mg/dl Est Creatinine Clear Calc Drug Dose 132.3 ml/min 167.3 ml/min Estimated GFR () 99.6 128.7 Estimated GFR (Non- 85.9 111.0 BUN/Creatinine Ratio 8.9 12.4 Random Glucose 119 mg/dl 101 mg/dl Calcium Level 8.4 mg/dl 8.6 mg/dl Total Bilirubin 0.7 mg/dl 0.7 mg/dl Aspartate Amino Transf (AST/SGOT) 66 U/L 54 U/L Alanine Aminotransferase (ALT/SGPT) 136 U/L 123 U/L Alkaline Phosphatase 57 U/L 51 U/L Total Protein 7.2 gm/dl 6.5 gm/dl Albumin 3.5 gm/dl 3.0 gm/dl Globulin 3.7 gm/dl 3.5 gm/dl Albumin/Globulin Ratio 0.9 0.9 Assessment and Plan Cellulitis with underlying abscess left leg failing outpt treatment - Abscess was drained at home with sterile needle? - Failed outpatient treatment with Bactrim and Keflex now on clindamycin along with cefepime. blood cultures are negative, if remain so will consider outpt clinda and close follow up Transaminitis: maybe from stress infection History of smoking: NicoDerm patch - Smoking cessation counseling DVT prophylaxis: Heparin subcutaneous Full code Continued [facility] stay due to: multiple IV medications needed Discharge planning: home
[2016-10-20 23:33] VITALS: BP 114/69; PULSE 74; TEMP 36.7; O2SAT 96
[2016-10-21] MEDS: VANCOMYCIN INJ 1,700 MG in SODIUM CHLORIDE 0.9% 500ML 500 ML IV SCH ×2 (04:11→11:41)
[2016-10-21] MEDS: CLINDAMYCIN IV 900 MG in DEXTROSE 5% ADD-VANTAGE 100ML 100 ML IV SCH ×2 (04:11→11:41)
[2016-10-21] MEDS ORDERED: KETOROLAC TROMETHAMINE 30 MG/ML VIAL IV STA (04:35)
[2016-10-21] MEDS: HEPARIN SOD 5000 UNIT/0.5 ML CARP SQ SCH ×2 (04:50→04:56)
[2016-10-21] MEDS: NICOTINE 21 MG/24 HR TDSY TD SCH (07:10)
[2016-10-21 07:21] VITALS: BP 126/75; PULSE 68; TEMP 36.5; O2SAT 96
[2016-10-21 07:58] LABS: BASO % 0.5 %; BASO ABS # 0.03 K/uL (0-0.2); COMPLETE YES; EOS % 2.9 %; HEMATOCRIT 34.4 % (42-52); IG% 0.2 %; LYMPH % 36.4 %; LYMPH ABS # 2.24 K/uL (1.2-3.4); MEAN CELL VOLUME 88.9 fL (80-100); MEAN CORPUSCULAR HEMOGLOBIN 30.5 pg (25-34); MEAN CORPUSCULAR HGB CONC 34.3 g/dl (32-36); MEAN PLATELET VOLUME 9.6 fL (7.4-10.4); PLATELET COUNT 210 K/uL (130-400); RED BLOOD COUNT 3.87 M/uL (4.7-6.1); WHITE BLOOD COUNT 6.16 K/uL (4.8-10.8)
[2016-10-21 08:00] VITALS: O2SAT 96
[2016-10-21 08:12] LABS: ALB/GLOB RATIO 0.8 (0.9-2); BUN/CREATININE RATIO 10.4 (10-20); CREATININE 0.98 mg/dl (0.60-1.40); POTASSIUM 3.8 mmol/L (3.5-5.1)
[2016-10-21] MEDS ORDERED: CLIN300C2 PO (08:13)
--- NOTE | 2016-10-21 08:14 | Discharge Instructions ---
Discharge Instructions Date of Service Oct 21, 2016. Admission Reason for Admission: Cellulitis Discharge Discharge Diagnosis / Problem: leg cellulitis Discharge Goals Goal(s): Diagnostic testing, Therapeutic intervention Activity Recommendations Activity Limitations: resume your previous activity . Instructions / Follow-Up Instructions / Follow-Up Keep wound clean and dry wash once a day or more with soap and water, use antibiotic ointment until skin is closed change dressing more often if becomes wet or soiled follow up with your family doctor for a wound check in one week Current Hospital Diet Patient's current hospital diet: Regular Diet Discharge Diet Recommended Diet: Regular Diet Pending Studies Studies pending at discharge: no Medical Emergencies . Who to Call and When: Medical Emergencies: If at any time you feel your situation is an emergency, please call 911 immediately. . Non-Emergent Contact Non-Emergency issues call your: Primary Care Provider Call Non-Emergent contact if: temperature is above 101, your pain is unusual for you . . "Provider Documentation" section prepared by Grant Powell. . VTE Core Measure Inpt VTE Proph given/why not?: Unfractionated heparin SQ
--- NOTE | 2016-10-21 08:44 | Medical Student: [facility] ---
Med Student Progress Note Date of Service Oct 21, 2016. Subjective Feeling well overall today. He has not had any systemic symptoms or fever for past few days. He denies pain at wound site, but does still note some itching. Had nurse clean wound yesterday evening and use topical bacitracin. Review of Systems Constitutional: No fever, No chills, No sweats ENT: No tinnitus Respiratory: No cough, No sputum, No shortness of breath Cardiac: No chest pain Abdomen: No pain, No nausea, No vomiting, No diarrhea Musculoskeletal: No joint pain, No muscle pain Male : No dysuria Heme: No abnormal bleeding/bruising Skin: + itch, No rash Objective Vital Signs Date Time Temp Pulse Resp B/P (MAP) Pulse Ox O2 Delivery O2 Flow Rate FiO2 10/21/16 08:00 96 Room Air 10/21/16 07:21 36.5 68 18 126/75 (92) 96 Room Air 10/21/16 00:00 Room Air 10/20/16 23:33 36.7 74 16 114/69 (84) 96 Room Air 10/20/16 16:00 96 Room Air 10/20/16 15:10 36.7 73 18 125/78 (94) 96 Room Air Physical Exam General Appearance: WD/WN, no apparent distress Respiratory/Chest: chest non-tender, lungs clear, normal breath sounds Cardiovascular: regular rate, rhythm, no edema, no gallop, no JVD Abdomen: normal bowel sounds, non tender, soft Extremities: normal range of motion, non-tender, + pertinent finding (left popliteal fossa lesion 1x5cm with reduced erythema surrounding central lesion. Center appears to be healing well with minimal drainage at this time. No lymphangitic spread or swelling noted. ) Neurologic/Psychiatric: alert, normal mood/affect, oriented x 3 Skin: normal color, warm/dry Lymphatic: no adenopathy Laboratory Results Last 24 Hours Test 10/20/16 11:55 10/21/16 07:05 Vancomycin Level Trough 14.3 mcg/ml White Blood Count 6.16 K/uL Red Blood Count 3.87 M/uL Hemoglobin 11.8 g/dL Hematocrit 34.4 % Mean Corpuscular Volume 88.9 fL Mean Corpuscular Hemoglobin 30.5 pg Mean Corpuscular Hemoglobin Concent 34.3 g/dl Platelet Count 210 K/uL Mean Platelet Volume 9.6 fL Neutrophils (%) (Auto) 48.0 % Lymphocytes (%) (Auto) 36.4 % Monocytes (%) (Auto) 12.0 % Eosinophils (%) (Auto) 2.9 % Basophils (%) (Auto) 0.5 % Neutrophils # (Auto) 2.96 K/uL Lymphocytes # (Auto) 2.24 K/uL Monocytes # (Auto) 0.74 K/uL Eosinophils # (Auto) 0.18 K/uL Basophils # (Auto) 0.03 K/uL RDW Standard Deviation 43.2 fL RDW Coefficient of Variation 13.3 % Immature Granulocyte % (Auto) 0.2 % Immature Granulocyte # (Auto) 0.01 K/uL Sodium Level 142 mmol/L Potassium Level 3.8 mmol/L Chloride Level 108 mmol/L Carbon Dioxide Level 23 mmol/L Anion Gap 11.0 mmol/L Blood Urea Nitrogen 10 mg/dl Creatinine 0.98 mg/dl Est Creatinine Clear Calc Drug Dose 148.5 ml/min Estimated GFR () 114.5 Estimated GFR (Non- 98.8 BUN/Creatinine Ratio 10.4 Random Glucose 103 mg/dl Total Bilirubin 0.4 mg/dl Aspartate Amino Transf (AST/SGOT) 74 U/L Alanine Aminotransferase (ALT/SGPT) 139 U/L Alkaline Phosphatase 55 U/L Total Protein 6.8 gm/dl Albumin 3.0 gm/dl Globulin 3.8 gm/dl Albumin/Globulin Ratio 0.8 Chemistry Specimen Hemolysis Medications Medications Administered Medications (Trade) Dose Ordered Sig/Sandra Route Start Time Stop Time Status Last Admin Dose Admin Ceftriaxone Sodium (Rocephin Inj) 1 gm NOW STAT IV 10/19/16 00:20 10/19/16 00:22 DC 10/19/16 00:28 1 GM Vancomycin HCl 2800 mg/Sodium Chloride 556 ml @ 200 mls/hr ONE STAT IV 10/19/16 00:20 10/19/16 03:06 DC 10/19/16 01:00 200 MLS/HR Ketorolac Tromethamine (Toradol Inj) 30 mg NOW STAT IV 10/19/16 00:30 10/19/16 00:31 DC 10/19/16 00:46 30 MG Heparin Sodium (Porcine) (Heparin Sq 5000 Unit/0.5ml) 5,000 unit Q8H SQ 10/19/16 06:00 7/11/17 05:59 10/21/16 04:56 5,000 UNIT Acetaminophen (Tylenol Tab) 650 mg Q4H PRN PO 10/19/16 01:15 11/18/16 01:14 10/19/16 20:48 650 MG Ondansetron HCl (Zofran Inj) 4 mg Q6H PRN IV 10/19/16 01:15 11/18/16 01:14 10/19/16 12:10 4 MG Vancomycin HCl 1700 mg/Sodium Chloride 534 ml @ 200 mls/hr Q8H IV 10/19/16 12:00 10/29/16 11:59 10/21/16 04:11 200 MLS/HR Cefepime HCl 2000 mg/Dextrose 112.5 ml @ 225 mls/hr Q12H IV 10/19/16 11:00 10/29/16 10:59 10/20/16 22:39 225 MLS/HR Clindamycin Phosphate 900 mg/ Dextrose 106 ml @ 106 mls/hr Q8H IV 10/19/16 12:00 10/29/16 11:59 10/21/16 04:11 106 MLS/HR Ibuprofen (Advil Tab) 400 mg NOW STAT PO 10/19/16 10:28 10/19/16 10:35 DC 10/19/16 10:56 400 MG Morphine Sulfate (MoRPHine SULFATE INJ) 2 mg NOW STAT IV 10/19/16 12:07 10/19/16 12:08 DC 10/19/16 12:12 2 MG Ketorolac Tromethamine (Toradol Inj) 30 mg NOW STAT IV 10/20/16 00:38 10/20/16 00:49 DC 10/20/16 00:57 30 MG Ketorolac Tromethamine (Toradol Inj) 30 mg STK-MED ONCE .ROUTE 10/20/16 08:19 10/20/16 08:20 DC 10/20/16 08:21 30 MG Ketorolac Tromethamine (Toradol Inj) 30 mg NOW STAT IV 10/21/16 04:35 10/21/16 04:39 DC 10/21/16 04:50 30 MG Assessment and Plan Assessment and Plan: 36 y/o male with cellulitis of left popliteal fossa. At this time all systemic symptoms have resolved and wound is healing well. Cultures continue to be negative. Cellulitis, left popliteal fossa. -May continue on oral clindamycin 300 mg PO four times a day x7days -d/c iv vanc and cefapime -follow up with pcp in 5 days Discharge:HOME Continued [facility] stay due to: multiple IV medications needed Discharge planning: home
[2016-10-21] MEDS: CEFEPIME IV 2000 MG in DEXTROSE 5% 100ML IV SCH (10:31)
[2016-10-21 11:39] VITALS: BP 126/75; PULSE 68; TEMP 36.5; O2SAT 96
--- NOTE | 2016-10-21 18:47 | Discharge Summary ---
Discharge Summary Date of Service Oct 21, 2016. Discharge Summary Admission Date: Oct 19, 2016 at 01:08 Discharge Date: Oct 21, 2016 Discharge Disposition: Home Principal Diagnosis: left leg cellulitis Medication Reconciliation New Medications: Clindamycin Hcl (Cleocin) 300 Mg Cap 300 MG PO TID for 10 Days, #30 CAP Discontinued Medications: Cephalexin Monohydrate (Keflex) 500 Mg Cap 500 MG PO QID, #36 CAP Sulfa/Trimethoprim (Bactrim Ds 800MG/160MG) Tab 1 TAB PO BID, #18 TAB Discharge Exam Review of Systems: Constitutional: No fever, No chills Respiratory: No cough, No sputum Integumentary: + problem reported (skin area less red, some crusting, no pain) Physical Exam: General Appearance: WD/WN, no apparent distress Neck: supple, no JVD Respiratory/Chest: chest non-tender, lungs clear, normal breath sounds Cardiovascular: regular rate, rhythm, no murmur Hospital Course Cellulitis with underlying abscess left leg failing outpt treatment - Abscess was drained at home with sterile needle? then neosporin applied, some people do have dermitis from neosporin, improved with inpatient treatment, will have home on clindamycin after treatment with clinda/Cefepime IV Transaminitis: from stress infection, recommended alcohol cessation and pcp follow up History of smoking: NicoDerm patch - Smoking cessation counseling Total Time Spent: Greater than 30 minutes This includes examination of the patient, discharge planning, medication reconciliation, and communication with other providers. Discharge Instructions Please refer to the electronic Patient Visit Report (Discharge Instructions) for additional information.
[2016-10-22] MEDS ORDERED: VANCOMYCIN TROUGH SCH (11:30)
== END 2016-10-21 13:00 | disposition home or self-care (01) | DRG 603 ==
LOC: C.EDB 22:37 → C.MS4W 10-19 01:08 → ENRESERV 10-19 01:22
PROVIDERS: ADMIT Family Medicine; ATTEND Internal Medicine
DX: L03.116 Cellulitis of left lower limb (principal); L02.416 Cutaneous abscess of left lower limb; S80.869A Insect bite (nonvenomous), unspecified lower leg, initial encounter; R74.0 Nonspecific elevation of levels of transaminase and lactic acid dehydrogenase [LDH]; F17.200 Nicotine dependence, unspecified, uncomplicated; Z51.81 Encounter for therapeutic drug level monitoring; W57.XXXA Bitten or stung by nonvenomous insect and other nonvenomous arthropods, initial encounter; Y99.8 Other external cause status

== ENCOUNTER 2017-01-31 17:45 | Emergency (ER) | payer SELFPAY ==
[~2017-01-31] VITALS: Ht 182.9 cm; Wt 129.7 kg
[2017-01-31 17:47] VITALS: TEMP 36.7; Ht 182.9 cm; Wt 129.7 kg
--- NOTE | 2017-01-31 18:03 | EMERGENCY ROOM VISIT NOTE ---
History Report prepared by Kyleeibridge: Carmita Fischer Under the Supervision of: Dr. Tom Brandon D.O. First contact with patient: 17:53 Chief Complaint: RECTAL BLEEDING Stated Complaint: DISCOMFORT AND BLEEDING FROM THE BUTT HOLE AREA History of Present Illness The patient is a 36 year old male who presents to the Emergency Room with complaints of persistent rectal bleeding for the past 2 days. He reports he has also experienced rectal pain for the past 4 days, and rates his discomfort as a 6/10 in severity. He admits he has felt a swollen bulge in his anal area. He tried placing hemorrhoid cream on the area, and states it provided some pain relief. He denies any recent weakness. Source of History: patient Onset: 2 days [employer]YSICAL [employer]ER[employer]ID[employer] Position: other (rectum) Quality: other (rectal bleeding) Timing: other (persistent) Associated Symptoms: No weakness Review of Systems See HPI for pertinent positives & negatives. A total of 10 systems reviewed and were otherwise negative. Past Medical & Surgical Medical Problems: (1) Cellulitis (2) No Known Active Medical Problems Family History Diabetes mellitus Heart disease Hypertension Social History Smoking Status: Current Every Day Smoker Alcohol Use: occasionally Drug Use: none Marital Status: single Housing Status: lives with family Occupation Status: employed Current/Historical Medications No Active Prescriptions or Reported Meds Allergies Coded Allergies: No Known Allergies (Unverified , 02/25/15) Physical Exam Vital Signs Date Time Temp Pulse Resp B/P (MAP) Pulse Ox O2 Delivery O2 Flow Rate FiO2 01/31/17 19:08 92 18 134/104 95 01/31/17 17:47 36.7 84 20 128/74 97 Room Air Physical Exam GENERAL: Patient is awake, alert, in no acute distress, patient is resting comfortably and showing no signs of anxiety EYES: The conjunctivae are clear. The pupils are round and reactive. EARS, NOSE, MOUTH AND THROAT: The nose is without any evidence of any deformity. Mucous membranes are moist tongue is midline NECK: The neck is nontender and supple. RESPIRATORY: Normal respiratory effort is noted there is no evidence of wheezing rhonchi or rales CARDIOVASCULAR: Regular rate and rhythm noted there no murmurs rubs or gallops normal S1 normal S2 GASTROINTESTINAL: The abdomen is soft. Bowel sounds are present in all quadrants. Abdomen is nontender PELVIS: The Pelvis is stable. No tenderness to palpation is noted. RECTAL: Large hemorrhoid, actively bleeding. No thrombosed hemorrhoid was noted. BACK: No midline tenderness or or step-off noted range of motion in flexion extension as well as rotation no signs of muscle spasm noted MUSCULOSKELETAL/EXTREMITIES: There is no evidence of gross deformity full range of motion is noted in the hips and shoulders SKIN: There is no obvious evidence of any rash. There are no petechiae, pallor or cyanosis noted. NEUROLOGIC: Patient is awake alert and oriented x3 strength is symmetric patellar reflexes are 2+ bilaterally Medical Decision & Procedures ED Course 1757: The patient was evaluated in room C5. A complete history and physical examination were performed. 1849: I reevaluated the patient. He is feeling well and resting comfortably. I discussed his results and discharge instructions and he verbalized complete understanding and agreement. Medical Decision Prior records/ancillary studies reviewed. Triage Nursing notes reviewed. The patient's history was concerning for possible gastrointestinal bleeding. Differential diagnosis: Etiologies such as diverticulosis, AVM, coagulopathy, colitis, inflammatory bowel disease, malignancy, Dejah-Lester tear, esophagitis, peptic ulcer disease , variceal bleed, gastritis, epistaxis, fissure, hemorrhoids, as well as others were entertained. The patient is a 36-year-old male who presented to the emergency department for evaluation of rectal bleeding and rectal pain. He appears to have a bleeding external hemorrhoid which is the source of the bleeding. This does not appear to be a thrombosed hemorrhoid at this time but it possibly could represent a thrombosed hemorrhoid which spontaneously ruptured. He was encouraged to continue using [id number] medications as prescribed and follow-up with the on-call general surgeon for further evaluation. He was also encouraged to return to the emergency department immediately if symptoms change worsen or the need arises. Medication Reconcilliation Current Medication List: was personally reviewed by me Blood Pressure Screening Patient's blood pressure: Normal blood pressure Blood pressure disposition: Did not require urgent referral Impression Primary Impression: Bleeding hemorrhoids Scribe Attestation The scribe's documentation has been prepared under my direction and personally reviewed by me in its entirety. I confirm that the note above accurately reflects all work, treatment, procedures, and medical decision making performed by me. Departure Information Dispostion Home / Self-Care Prescriptions No Active Prescriptions or Reported Meds Referrals No Doctor, Assigned (PCP) Patient Instructions Hemorrhoids, My [facility] Additional Instructions Continue to put hemorrhoid cream to the area 3-4 times a day. Call the general surgeon to schedule a follow-up appointment. Continue all medications as prescribed.
[2017-01-31 19:08] VITALS: BP 134/104; PULSE 92; O2SAT 95
== END 2017-01-31 19:08 | disposition home or self-care (01) ==
LOC: C.EDB 17:47 → C.EDC 19:08
DX: K64.4 Residual hemorrhoidal skin tags (principal); Z86.19 Personal history of other infectious and parasitic diseases; F17.200 Nicotine dependence, unspecified, uncomplicated; Z83.3 Family history of diabetes mellitus; Z82.49 Family history of ischemic heart disease and other diseases of the circulatory system

== ENCOUNTER → 2017-07-07 | Outpatient (CLI) | payer BC ==
--- NOTE | 2017-07-07 12:23 | DIAGNOSTIC IMAGING REPORT ---
ULTRASOUND L VENOUS DOPP LOWER EXT UNILAT CLINICAL HISTORY: L LEG PAIN COMPARISON STUDY: No previous studies for comparison. FINDINGS: Real-time and color flow Doppler imaging were performed. Flow was seen within the femoral, popliteal and calf veins with no intraluminal thrombus demonstrated. The saphenous vein is patent. IMPRESSION: No evidence of left lower extremity DVT. Electronically signed by: Lucas Chen M.D. 07/07/2017 12:21 PM Dictated Date/Time: 07/07/2017 12:21 PM
== END | disposition home or self-care (01) ==
LOC: C.ULTR 11:11
PROVIDERS: ATTEND Physician Assistant
DX: M79.605 Pain in left leg (principal)

== ENCOUNTER 2021-10-05 18:54 | Observation (INO) ==
[2021-10-05] MEDS ORDERED: SODIUM CHLORIDE 0.9% 1000ML 1,000 ML IV STA (19:26)
--- NOTE | 2021-10-05 19:43 | Emergency Department Note ---
Impression & Plan Right sided abdominal pain, Acute appendicitis ED Provider Note NAME: CASE SPENCER JR AGE: 41 SEX: M : 1980 ARRIVES VIA: Walk-In INFORMANT: [Patient] ED PROVIDER(S): [Davey Elena MD] CHIEF COMPLAINT: Abdominal pain HISTORY OF PRESENT ILLNESS: The patient is a 41-year-old male presents to the ER with complaints of primarily right-sided abdominal pain. The pain started last evening, has been present for about 24 hours. The pain is a 4 or 5 on a scale of 1-10. The pain is worse when he moves certain ways or bends over. He has felt some increased pain with a deep breath even. There has been no nausea or diarrhea. No fever, no urinary complaints. The pain does not change when he eats. He has not suffered any trauma. He has no history of previous abdominal surgery. He has tried ibuprofen with no help with the discomfort. REVIEW OF SYSTEMS: See HPI for pertinent positives and negatives. A total of ten systems were reviewed and were otherwise negative. PMHx/PSHx: See Below SOCIAL HISTORY: See Below. PHYSICAL EXAM: GENERAL: Patient is in no acute distress. HEENT: No acute trauma, normocephalic atraumatic, mucous membranes moist, no nasal congestion, no scleral icterus. NECK: No stridor, no adenopathy, no meningismus, trachea is midline. LUNGS: Clear to auscultation bilaterally, no wheeze, no rhonchi, breath sounds equal. HEART: Without murmurs gallops or rubs, regular rate and rhythm. ABDOMEN: Soft, mildly tender in the right upper quadrant, significantly tender in the right lower quadrant, bowel sounds positive. EXTREMITIES: No cyanosis or edema, full range of motion of all the joints without pain or difficulty, no signs for acute trauma. NEUROLOGIC: Oriented x 3, no acute motor or sensory deficits, no focal weakness. SKIN: No rash, no jaundice, no diaphoresis. DIFFERENTIAL DIAGNOSIS: Appendicitis, testicular torsion, diverticulitis, UTI, obstruction, mesenteric ischemia, aortic pathology, inflammatory bowel disease, renal colic, PUD, pancreatitis, biliary pathology, hernia, volvulus, constipation, as well as other pathologies. EMERGENCY DEPARTMENT COURSE/PROCEDURES: MEDICAL DECISION MAKING: There is no leukocytosis. A very mild anemia was noted. There was a normal platelet count. No renal failure or significant electrolyte abnormality. No concerning liver enzyme elevation. No evidence for pancreatitis. Urinalysis did not show hematuria or infection. COVID test returned negative. Abdominal and pelvis CT shows early appendicitis. On exam, the patient was tender in the right lower quadrant, he was not toxic or febrile. Patient was given IV saline, 1 L, he did not want anything for pain. Patient has acute appendicitis, this explains his discomfort. I did contact general surgery, Dr. Pereira. The patient is going to the operating room for surgical intervention. The patient is aware of his findings, case management has been involved. Past Med/Surg History Medical History Asthma BMI 36.0-36.9,adult Elevated BP without diagnosis of hypertension Elevated LFTs Seasonal allergies Tobacco use Surgical History History of lymph node excision 2008 History of tonsillectomy and adenoidectomy 1988 Family History Mother Anxiety Depression Hypertension Sister Depression Father Hypertension Hearing loss Brother Hypertension Other Alcohol abuse Cardiac disorder Diabetes Kidney disease No family history of adverse response to anesthesia No family history of bleeding disorder Denies family history of Ovarian cancer Prostate cancer Breast cancer Colorectal cancer Social History Smoking Status: Current every day smoker Tobacco Type: Cigarettes Hx Alcohol Use: Yes Hx Substance Use: No Preferred Language: Swedish marital status: Single Current Living Situation: Family current occupational status: unemployed Feels Safe at Home: Yes Dental Care, Regularly: No Physical Activity Frequency: 1-2 Times per Week Allergies Allergies Allergy/AdvReac Type Severity Reaction Status Date / Time No Known Allergies Allergy Verified 10/05/21 21:14 Home Meds Home Medications Medication Instructions Recorded Confirmed ibuprofen 200 mg tablet 1,000 mg PO DAILY PRN 10/05/21 10/05/21 multivitamin 1 tab PO DAILY 10/05/21 10/05/21 Previous Rx's Medication Instructions Recorded lisinopril 40 mg tablet 40 mg PO DAILY #90 tab 08/16/21 amlodipine 5 mg tablet 5 mg PO DAILY #30 tab 09/11/21 Results & Data (ED) Vital Signs Vital Signs - 24 hr 10/05/21 18:55 10/05/21 20:55 10/05/21 22:00 Temperature 36.3 C L Temperature Source Temporal Artery Scan Pulse Rate 79 Pulse Rate [Apical] 70 78 Pulse Rhythm [Apical] Pulse Strength [Apical] Respiratory Rate 16 16 14 Respiratory Effort / Characteristics Non-Labored Spontaneous Respiratory Depth Normal Respiratory Pattern Blood Pressure 146/88 H Blood Pressure [Left Arm] 150/92 H 145/88 H Blood Pressure Mean 107 Blood Pressure Mean [Left Arm] 111 107 Blood Pressure Position Sitting Blood Pressure Position [Left Arm] Pulse Oximetry 98 98 98 Oxygen Delivery Method Room Air Room Air Room Air Oxygen Flow Rate Sepsis Recent Fever Within 48 Hours No Sepsis New/Unexplained Change in Mental Status N/A Sepsis Action Taken by Nursing No Action Required 10/05/21 23:59 10/06/21 00:05 10/06/21 00:15 Temperature 36.1 C L Temperature Source Temporal Artery Scan Pulse Rate Pulse Rate [Apical] 73 70 70 Pulse Rhythm [Apical] Regular Regular Regular Pulse Strength [Apical] Normal Normal Normal Respiratory Rate 14 15 13 Respiratory Effort / Characteristics Non-Labored Spontaneous Non-Labored Spontaneous Non-Labored Spontaneous Respiratory Depth Normal Normal Normal Respiratory Pattern Regular Regular Regular Blood Pressure Blood Pressure [Left Arm] 124/78 129/82 124/78 Blood Pressure Mean Blood Pressure Mean [Left Arm] 93 97 93 Blood Pressure Position Blood Pressure Position [Left Arm] Lying Lying Lying Pulse Oximetry 99 99 99 Oxygen Delivery Method Oxymask Oxymask Oxymask Oxygen Flow Rate 6 6 6 Sepsis Recent Fever Within 48 Hours Sepsis New/Unexplained Change in Mental Status Sepsis Action Taken by Nursing 10/06/21 00:25 Temperature 36.6 C Temperature Source Oral Pulse Rate Pulse Rate [Apical] 70 Pulse Rhythm [Apical] Regular Pulse Strength [Apical] Normal Respiratory Rate 15 Respiratory Effort / Characteristics Non-Labored Spontaneous Respiratory Depth Normal Respiratory Pattern Regular Blood Pressure Blood Pressure [Left Arm] 125/77 Blood Pressure Mean Blood Pressure Mean [Left Arm] 93 Blood Pressure Position Blood Pressure Position [Left Arm] Lying Pulse Oximetry 93 Oxygen Delivery Method Room Air Oxygen Flow Rate Sepsis Recent Fever Within 48 Hours Sepsis New/Unexplained Change in Mental Status Sepsis Action Taken by [facility] Medications Current Medication List: was personally reviewed by me Laboratory Data Attestation: I reviewed the patient's lab results. Result diagrams: 10/05/21 19:30 10/05/21 19:30 Lab Results 10/05/21 10/05/21 10/05/21 Range/Units 19:30 19:30 19:40 WBC 9.81 (4.8-10.8) K/uL RBC 4.22 L (4.7-6.1) M/uL Hgb 13.6 L (14.0-18.0) g/dL Hct 39.5 L (42-52) % MCV 93.6 (80-100) fL MCH 32.2 (25-34) pg MCHC 34.4 (32-36) g/dL RDW Std Deviation 45.2 (36.4-46.3) fL RDW Coeff of Moisés 13.2 (11.5-14.5) % Plt Count 306 (130-400) K/uL MPV 10.1 (7.4-10.4) fL Immature Gran % (Auto) 0.2 % Neut % (Auto) 57.0 % Lymph % (Auto) 32.0 % [place] % (Auto) 8.4 % Eos % (Auto) 2.2 % Baso % (Auto) 0.2 % Neut # (Auto) 5.59 (1.4-6.5) K/uL Lymph # (Auto) 3.14 (1.2-3.4) K/uL [place] # (Auto) 0.82 H (0.11-0.59) K/uL Eos # (Auto) 0.22 (0-0.5) K/uL Baso # (Auto) 0.02 (0-0.2) K/uL Immature Gran # (Auto) 0.02 (0.00-0.02) K/uL Sodium 139 (136-145) mmol/L Potassium 4.0 (3.5-5.1) mmol/L Chloride 106 (98-107) mmol/L Carbon Dioxide 24 (21-32) mmol/L Anion Gap 9 (3-11) BUN 16 (6-23) mg/dl Creatinine 0.98 (0.6-1.4) mg/dl Est Cr Clr Drug Dosing 140.6 ml/min Est GFR ( Amer) 110.5 ml/min Est GFR (Non-Af Amer) 95.4 ml/min BUN/Creatinine Ratio 16.3 (10-20) Glucose 80 (70-99(Fasting)) mg/dl Calcium 9.7 (8.5-10.1) mg/dl Total Bilirubin 0.5 (0.2-1.0) mg/dl AST 31 (13-39) U/L ALT 54 H (7-52) U/L Alkaline Phosphatase 55 (34-104) U/L Total Protein 7.2 (6.0-8.3) gm/dl Albumin 4.5 (3.4-5.0) gm/dl Globulin 2.7 (2.5-4.0) gm/dl Albumin/Globulin Ratio 1.7 (0.9-2) Lipase 30 (11-82) U/L Urine Color Urine Appearance (Clear) Urine pH (4.5-7.5) Ur Specific [place] (1.000-1.030) Urine Protein (Negative) Urine Glucose (UA) (Negative) Urine Ketones (Negative) Urine Blood (Negative) Urine Nitrite (Negative) Urine Bilirubin (Negative) Urine Urobilinogen (Negative) Ur Leukocyte Esterase (Negative) SARS-CoV-2, RNA, NAAT NEGATIVE (NEGATIVE) 10/05/21 Range/Units 20:59 WBC (4.8-10.8) K/uL RBC (4.7-6.1) M/uL Hgb (14.0-18.0) g/dL Hct (42-52) % MCV (80-100) fL MCH (25-34) pg MCHC (32-36) g/dL RDW Std Deviation (36.4-46.3) fL RDW Coeff of Moisés (11.5-14.5) % Plt Count (130-400) K/uL MPV (7.4-10.4) fL Immature Gran % (Auto) % Neut % (Auto) % Lymph % (Auto) % [place] % (Auto) % Eos % (Auto) % Baso % (Auto) % Neut # (Auto) (1.4-6.5) K/uL Lymph # (Auto) (1.2-3.4) K/uL [place] # (Auto) (0.11-0.59) K/uL Eos # (Auto) (0-0.5) K/uL Baso # (Auto) (0-0.2) K/uL Immature Gran # (Auto) (0.00-0.02) K/uL Sodium (136-145) mmol/L Potassium (3.5-5.1) mmol/L Chloride (98-107) mmol/L Carbon Dioxide (21-32) mmol/L Anion Gap (3-11) BUN (6-23) mg/dl Creatinine (0.6-1.4) mg/dl Est Cr Clr Drug Dosing ml/min Est GFR ( Amer) ml/min Est GFR (Non-Af Amer) ml/min BUN/Creatinine Ratio (10-20) Glucose (70-99(Fasting)) mg/dl Calcium (8.5-10.1) mg/dl Total Bilirubin (0.2-1.0) mg/dl AST (13-39) U/L ALT (7-52) U/L Alkaline Phosphatase (34-104) U/L Total Protein (6.0-8.3) gm/dl Albumin (3.4-5.0) gm/dl Globulin (2.5-4.0) gm/dl Albumin/Globulin Ratio (0.9-2) Lipase (11-82) U/L Urine Color Yellow Urine Appearance Clear (Clear) Urine pH 6.5 (4.5-7.5) Ur Specific [place] > 1.045 H (1.000-1.030) Urine Protein Negative (Negative) Urine Glucose (UA) Negative (Negative) Urine Ketones Negative (Negative) Urine Blood Negative (Negative) Urine Nitrite Negative (Negative) Urine Bilirubin Negative (Negative) Urine Urobilinogen Negative (Negative) Ur Leukocyte Esterase Negative (Negative) SARS-CoV-2, RNA, NAAT (NEGATIVE) Administered Medications Discontinued Medications Bupivacaine HCl (Bupivacaine 0.5 % 5 Mg/1 Ml Mpf 30ml Vial) Confirm Administered Dose 30 ml .ROUTE .STK-MED ONE Stop: 10/05/21 22:17 Last Admin: 10/05/21 23:43 Dose: 30 ml Documented by: [id number] Sodium Chloride (Nss 1000ml) 1,000 mls @ 999 mls/hr IV .Q1H1M STA Stop: 10/05/21 20:26 Last Infusion: 10/05/21 20:39 Dose: 0 mls/hr Documented by: [id number] Admin: 10/05/21 19:38 Dose: 999 mls/hr Documented by: [id number] Cefoxitin Sodium (Mefoxin) 2,000 mg in 60 mls @ 100 mls/hr IV NOW STA Stop: 10/05/21 23:01 Last Admin: 10/05/21 23:00 Dose: 100 mls/hr Documented by: [id number] Ioversol (Optiray 320 100ml) 94 ml IV ONCE ONE Stop: 10/05/21 20:30 Last Admin: 10/05/21 20:29 Dose: 94 ml Documented by: [id number] Imaging Data Radiologist's Impression: Abdominal and pelvis CT: Dilation of the distal appendix with mild surrounding fat stranding. Enhancement noted of the appendiceal wall. Findings consistent with acute appendicitis. No free air. No diverticulitis. Discharge Plan Visit Data Chief Complaint: Abdominal Pain Stated Complaint: STOMACH AND SIDE PAINS ED Provider: Davey Elena Discharge Problem: Right sided abdominal pain, Acute appendicitis Patient Disposition: Admitted As Inpatient Condition: Good Discharge Instructions Interventions: ED Discharge Assessment Last Done: 10/05/21 22:20
[2021-10-05 19:51] LABS: Basophils # (auto) 0.02 K/uL (0-0.2); Basophils % (auto) 0.2 %; Eosinophils # (auto) 0.22 K/uL (0-0.5); Eosinophils % (auto) 2.2 %; Hematocrit (blood only) 39.5 % (42-52); Hemoglobin 13.6 g/dL (14.0-18.0); Immature Granulocytes # (auto) 0.02 K/uL (0.00-0.02); Immature Granulocytes % (auto) 0.2 %; Lymphocytes # (auto) 3.14 K/uL (1.2-3.4); Mean Corpuscular Hemoglobin 32.2 pg (25-34); Mean Corpuscular Hgb Conc 34.4 g/dL (32-36); Mean Corpuscular Volume 93.6 fL (80-100); Mean Platelet Volume 10.1 fL (7.4-10.4); Monocytes # (auto) 0.82 K/uL (0.11-0.59); Monocytes % (auto) 8.4 %; Neutrophils # (auto) 5.59 K/uL (1.4-6.5); Platelet Count 306 K/uL (130-400); RDW Coefficient of Variation 13.2 % (11.5-14.5); RDW Standard Deviation 45.2 fL (36.4-46.3); Red Blood Count 4.22 M/uL (4.7-6.1); White Blood Count 9.81 K/uL (4.8-10.8)
[2021-10-05 20:20] LABS: Albumin Globulin Ratio 1.7 (0.9-2); Albumin Level 4.5 gm/dl (3.4-5.0); BUN Creatinine Ratio 16.3 (10-20); Bilirubin,Total 0.5 mg/dl (0.2-1.0); Calcium 9.7 mg/dl (8.5-10.1); Creatinine Clr Calc Pharmacy 140.6 ml/min; Est GFR (African American) 110.5 ml/min; Est GFR (Non-African American) 95.4 ml/min; Globulin 2.7 gm/dl (2.5-4.0); Total Protein 7.2 gm/dl (6.0-8.3)
[2021-10-05] MEDS ORDERED: OPTIRAY 320 100ml IV ONE (20:29)
[2021-10-05 21:07] LABS: Appearance Urine Clear (Clear); Bilirubin Urine Negative (Negative); Blood Urine Negative (Negative); Color Urine Yellow; Glucose Urine UA Negative (Negative); Ketones Urine Negative (Negative); Leukocyte Esterase Urine Negative (Negative); Nitrite Urine Negative (Negative); Protein Urine Negative (Negative); Specific Gravity Urine > 1.045 (1.000-1.030); Urobilinogen Urine Negative (Negative); pH Urine 6.5 (4.5-7.5)
--- NOTE | 2021-10-05 21:35 | History & Physical Report ---
Date of Service October 05, 2021 Assessment & Plan (1) Acute appendicitis: Plan: 41 yr old man with acute appendicitis. Discussed laparosopic appendectomy with risks of bleeding, infection, conversion to open, postop ileus/ abscess, negative appy. Consent signed. For OR tonight. Expected observation stay and 1-2 week recovery period reviewed. History of Present Illness Chief Complaint: abdominal pain Primary Care Provider: Dhaval Brown MD 41 yr old man who presents to the ER complaining of right sided abdominal pain of 1 days duration (started 8:30 pm last hair). Worse if he bends over, 4-5 / 10 in severity. Thought he ate something bad. Was able to sleep and then went to work today. No similar episodes. No nausea or vomiting. Tried ibuprofen with no relief. No anorexia. Pain is sharp, stabbing, radiates through abdomen. Persisted at work all day today. Hurt if he took a deep breath in. Came in for evaluation. In ER, Ct scan read as acute appendicitis. Allergies Allergy/AdvReac Type Severity Reaction Status Date / Time No Known Allergies Allergy Verified 10/05/21 21:14 Home Medications Medication Instructions Recorded Confirmed Type lisinopril 40 mg tablet 40 mg PO DAILY #90 tab 08/16/21 10/05/21 Rx amlodipine 5 mg tablet 5 mg PO DAILY #30 tab 09/11/21 10/05/21 Rx ibuprofen 200 mg tablet 1,000 mg PO DAILY PRN 10/05/21 10/05/21 History multivitamin 1 tab PO DAILY 10/05/21 10/05/21 History Past Med/Surg History Medical History Asthma BMI 36.0-36.9,adult Elevated BP without diagnosis of hypertension Elevated LFTs Seasonal allergies Tobacco use Surgical History History of lymph node excision 2008 History of tonsillectomy and adenoidectomy 1988 Family History Mother Anxiety Depression Hypertension Sister Depression Father Hypertension Hearing loss Brother Hypertension Other Alcohol abuse Cardiac disorder Diabetes Kidney disease No family history of adverse response to anesthesia No family history of bleeding disorder Denies family history of Ovarian cancer Prostate cancer Breast cancer Colorectal cancer Social History Smoking Status: Current every day smoker Tobacco Type: Cigarettes Hx Alcohol Use: Yes Hx Substance Use: No Preferred Language: Guamanian marital status: Single Current Living Situation: Family current occupational status: unemployed Feels Safe at Home: Yes Dental Care, Regularly: No Physical Activity Frequency: 1-2 Times per Week Review of Systems Review of Systems: All systems reviewed & are unremarkable except as noted in HPI & below Musculoskeletal: history of gout Physical Exam Constitutional: WD/WN, vitals as above Eyes: PERRL, conjunctivae normal, anicteric sclerae ENMT: external ear and nose normal, oropharynx normal Neck: normal visual inspection and trachea midline Respiratory: normal respiratory effort, lungs clear to auscultation Cardiovascular: RRR, no murmur, no edema Gastrointestinal (Abdomen): Inspection/Auscultation: abdomen normal to inspection and normal bowel sounds; abdomen not distended Percussion/Palpation: + abdomen tender (right lateral abdomen with guarding) and abdomen soft Musculoskeletal: no cyanosis or clubbing, extremities motor strength 5/5 Neurologic: moves all extremities and awake Psychiatric: A+Ox3, euthymic affect Results & Data Results & Data ([facility]) Vital Signs (Past 12 Hours) Vital Signs Temp Pulse Pulse Resp BP BP Pulse Ox 10/05/21 20:55 70 16 150/92 H 98 10/05/21 18:55 36.3 C L 79 16 146/88 H 98 Laboratory Results Abnormal lab results 10/05/21 10/05/21 10/05/21 Range/Units 19:30 19:30 20:59 RBC 4.22 L (4.7-6.1) M/uL Hgb 13.6 L (14.0-18.0) g/dL Hct 39.5 L (42-52) % [place] # (Auto) 0.82 H (0.11-0.59) K/uL ALT 54 H (7-52) U/L Ur Specific [place] > 1.045 H (1.000-1.030) Diagnostic Findings CT scan shows early appendicitis
[2021-10-05] MEDS ORDERED: BUPIVACAINE 0.5 % 5 MG/1 ML MPF 30ML VIAL ONE (22:16)
[2021-10-05] MEDS ORDERED: cefOXitin 2,000 MG/60 ML BAG IV STA (22:26)
[2021-10-05] MEDS ORDERED: PROMETHAZINE HCL 6.25 MG in SODIUM CHLORIDE 0.9% 50 ML IV PRN (22:40)
[2021-10-05] MEDS ORDERED: ONDANSETRON INJ 2 MG/ML 2 ML VIAL IV PRN (22:40)
[2021-10-05] MEDS ORDERED: ePHEDrine sulfate 50 MG/ML AMP IV PRN (22:40)
[2021-10-05] MEDS ORDERED: fentaNYL citrate 100 MCG/2 ML VIAL IV PRN (22:40)
[2021-10-05] MEDS ORDERED: ATROPINE SULFATE 0.1 MG/ML 10ML SYR IV PRN (22:40)
--- NOTE | 2021-10-05 22:40 | Anesthesiology Consultation ---
Date of Service October 05, 2021 Assessment & Plan Chart Review Chart Review: Acceptable Risk for Surgery and Patient NOT seen in Pre Admission Testing Consults Requested none ASA [id number] Proposed Anesthesia Anesthesia Type: General Risk / Benefits Reviewed With: PT / POA / Parent / Guardian, Accepts Plan and Informed Consent Obtained History Surgery Operation Date: 10/05/21 23:00 Proposed Procedures p Laparoscopic Appendectomy - Maxine Pereira MD Height/Weight Height: 6 ft 2 in Weight: 127.3 kg Allergies Allergy/AdvReac Type Severity Reaction Status Date / Time No Known Allergies Allergy Verified 10/05/21 21:14 Medications Home Medications Medication Instructions Recorded Confirmed Last Taken lisinopril 40 mg tablet 40 mg PO DAILY #90 tab 08/16/21 10/05/21 Unknown amlodipine 5 mg tablet 5 mg PO DAILY #30 tab 09/11/21 10/05/21 Unknown ibuprofen 200 mg tablet 1,000 mg PO DAILY PRN 10/05/21 10/05/21 Unknown multivitamin 1 tab PO DAILY 10/05/21 10/05/21 Unknown Past Medical History Medical History Asthma BMI 36.0-36.9,adult Elevated BP without diagnosis of hypertension Elevated LFTs Seasonal allergies Tobacco use Exercise / Class Metabolic Activity II 4-5 Yardwork/Stairs/Walk up hill Past Family History Family History Mother Anxiety Depression Hypertension Sister Depression Father Hypertension Hearing loss Brother Hypertension Other Alcohol abuse Cardiac disorder Diabetes Kidney disease No family history of adverse response to anesthesia No family history of bleeding disorder Denies family history of Ovarian cancer Prostate cancer Breast cancer Colorectal cancer Past Surgical History Surgical History History of lymph node excision 2008 History of tonsillectomy and adenoidectomy 1988 Past Anesthesia History No Hx of Anesthesia Complications and No Family Hx of Anesthesia Complications History of PONV No Hx of PONV and No Hx of Motion Sickness Social History Smoking Status: Current every day smoker Hx Alcohol Use: Yes Hx Substance Use: No Physical Exam Vital Signs Last Vital Signs Temp 36.3 C L 10/05/21 18:55 Pulse 78 10/05/21 22:00 Resp 14 10/05/21 22:00 BP 145/88 H 10/05/21 22:00 Pulse Ox 98 10/05/21 22:00 ENMT Mouth: no dentition abnormality Thyromental Distance: > or= 3.5 Finger Breadths Mallampati Class: II Neck normal visual inspection Respiratory normal respiratory effort Auscultation: lungs clear to auscultation bilaterally Cardiovascular Rate/Rhythm: regular rate and regular rhythm Psychiatric Orientation: alert Testing Laboratory Results 10/05/21 19:30 10/05/21 19:30 Urine Color Yellow 10/05/21 20:59 Urine Appearance Clear (Clear) 10/05/21 20:59 Urine pH 6.5 (4.5-7.5) 10/05/21 20:59 Ur Specific [place] > 1.045 (1.000-1.030) H 10/05/21 20:59 Urine Protein Negative (Negative) 10/05/21 20:59 Urine Glucose (UA) Negative (Negative) 10/05/21 20:59 Urine Ketones Negative (Negative) 10/05/21 20:59 Urine Nitrite Negative (Negative) 10/05/21 20:59 Ur Leukocyte Esterase Negative (Negative) 10/05/21 20:59
[2021-10-05] MEDS ORDERED: fentaNYL citrate 100 MCG/2 ML VIAL ONE (22:44)
[2021-10-05] MEDS ORDERED: MoRPHine SULFATE PF 1 MG/ML 10 ML AMP/VIAL ONE (23:08)
[2021-10-05] MEDS ORDERED: PROPOFOL IV EMULSION 10 MG/ML 20 ML VIAL IV ONE (23:42)
[2021-10-05] MEDS ORDERED: SUCCINYLCHOLINE CHLORIDE 20 MG/ML 10 ML VIAL IV ONE (23:42)
[2021-10-05] MEDS ORDERED: DEXAMETHASONE SOD INJ 4 MG/ML VIAL ONE (23:43)
[2021-10-05] MEDS ORDERED: LIDOCAINE 2% 2 ML VIAL/AMP(20MG/ML) INFIL ONE (23:43)
[2021-10-05] MEDS ORDERED: KETOROLAC 30 MG/ML VIAL ONE (23:43)
[2021-10-05] MEDS ORDERED: NEOSTIGMINE METHYLSULFATE 1 MG/ML 10ML VIAL ONE (23:43)
[2021-10-05] MEDS ORDERED: ONDANSETRON INJ 2 MG/ML 2 ML VIAL ONE (23:43)
[2021-10-05] MEDS ORDERED: GLYCOPYRROLATE 0.2 MG/ML VIAL ONE (23:43)
--- NOTE | 2021-10-05 23:56 | Operative Report ---
Post Operative Report Pre & Post Diagnosis Operation Date: 10/05/21 23:00 Pre-Op Diagnosis: Acute appendicitis. Post-Op Diagnosis: Acute appendicitis. I identified the patient and participated in the time-out.: Yes Procedure Operation Date: 10/05/21 23:00 Actual Procedures p Laparoscopic Appendectomy - Maxine Pereira MD Surgeon Maxine Pereira MD On Air Talent none Estimated Blood Loss 5 Findings Consistent with Post-Op Diagnosis acute appendicitis Fluids 900 cc Specimens appendix Drains none Anesthesia Type General Complications none Disposition Disposition: Recovery Room Indications Mr. Nguyễn is a 41-year-old man who presented with right lower quadrant pain persistent for 1 day. This was quite severe. CT scan showed acute appendicitis. He was consented for laparoscopic appendectomy Description of Procedure He received Mefoxin preoperatively and had placement of sequential compression devices. He underwent induction of general endotracheal anesthesia and was positioned with his left arm tucked. His abdomen was sterilely prepped and draped. He was positioned in Trendelenburg. A supraumbilical incision was made and a Veress needle introduced into the abdominal cavity. This was tested with a saline drop test. Initial pressure was 2 mmHg and this was taken up to 15 mmHg. A 12 mm trocar was placed with the camera through the trocar site. 2 5 mm trochars were placed under direct vision. One was placed in the left lower quadrant and the other in the midline pubic area. The appendix was difficult to visualize due to intra-abdominal obesity. This was ultimately found coursing lateral and posterior to the cecum. The appendix was adhesed with inflammation of its tip. The appendix was divided off the cecum with a firing of the CHITRA purple load stapler. The appendiceal mesentery was sequentially taken with fir ing of the CHITRA martell load stapler. The appendix was removed and placed in Endobag. It was removed through the umbilical incision. The abdomen was irrigated and hemostasis was noted to be present. The irrigation was suctioned out. The trochars were removed. 30 cc of half percent Marcaine was used for local anesthesia. The fascia of the umbilical incision was closed with 0 Vicryl stitches placed anteriorly. The skin of all 3 incisions closed with running subcuticular 4 Vicryl sutures. Steri-Strips and sterile dressings were applied. He was taken to recovery in stable condition. I attest to the content of the Intraoperative Record and any orders documented therein. Any exceptions are noted below.
--- NOTE | 2021-10-06 00:48 | Anesthesiology Progress Note ---
Date of Service October 06, 2021 Anesthesia Post Procedure Vital Signs Vital Signs: Temp Pulse Pulse Resp BP BP Pulse Ox 10/06/21 00:35 71 13 113/71 93 10/06/21 00:25 36.6 C 70 15 125/77 93 10/06/21 00:15 70 13 124/78 99 10/06/21 00:05 70 15 129/82 99 10/05/21 23:59 36.1 C L 73 14 124/78 99 10/05/21 22:00 78 14 145/88 H 98 10/05/21 20:55 70 16 150/92 H 98 10/05/21 18:55 36.3 C L 79 16 146/88 H 98 Pain Intensity Right Abdomen: Pain Intensity: 5 Transfer of Care Handoff Completed per policy Notes Mental Status: alert / awake / arousable Patient Amnestic to Procedure: Yes Nausea / Vomiting: adequately controlled Pain: adequately controlled Airway Patency, RR, SpO2: stable & adequate BP & HR: stable & adequate Hydration State: stable & adequate Anesthetic Complications: no major complications apparent
[2021-10-06] MEDS ORDERED: IBUPROFEN 200 MG TAB PO PRN (01:05)
[2021-10-06] MEDS ORDERED: MoRPHine SULFATE 2 MG/ML CARP IV PRN (01:05)
[2021-10-06] MEDS: LACTATED RINGER'S 1,000 ML IV SCH ×2 (01:05→10:44)
[2021-10-06] MEDS ORDERED: ACETAMINOPHEN 325 MG TAB PO PRN (01:05)
[2021-10-06] MEDS ORDERED: ONDANSETRON INJ 2 MG/ML 2 ML VIAL IV PRN (01:05)
[2021-10-06] MEDS ORDERED: PROMETHAZINE HCL 12.5 MG in SODIUM CHLORIDE 0.9% 50 ML IV PRN (01:05)
[2021-10-06] MEDS ORDERED: oxyCODONE/ACETAMINOPHEN 5mg/325mg TAB PO PRN ×2 (01:05)
[2021-10-06] MEDS ORDERED: MoRPHine SULFATE 4 MG/ML 1 ML CARP\\VIAL IV PRN (01:05)
--- NOTE | 2021-10-06 07:50 | CT Scan Report ---
ABDOMEN AND PELVIS CT WITH IV CONTRAST CT DOSE: 1286.84 mGy.cm HISTORY: right sided abd pain TECHNIQUE: Multiaxial CT images of the abdomen and pelvis were performed following the use of intrave nous contrast. A dose lowering technique was utilized adhering to the principles of ALARA. COMPARISON STUDY: Abdomen and pelvis CT 11/22/2011. FINDINGS: The lung bases are clear. No pneumoperitoneum. No pneumatosis. No fractures within the visu alized osseous structures. Mild hepatic steatosis. The gallbladder, spleen, adrenal glands, pancreas, and kidneys are unremarkable. No hydronephrosis. No retroperitoneal lymphadenopathy. Normal caliber abdominal aorta. The bladder is unremarkable. No evidence for bowel obstruction. No pelvic free fluid . Mild wall thickening and minimal adjacent fat stranding within the appendix which measures up to 8 mm in diameter. Therefore, this is consistent with an early acute appendicitis. No perforation or abs cess identified. IMPRESSION: 1. Above findings consistent with an early acute appendicitis. 2. Hepatic steatosis. ACT 112: Negative or not required by law. Electronically signed by: James Brock M.D. 10/06/2021 7:48 AM
[2021-10-06] MEDS ORDERED: lisinopril 40 MG TAB PO SCH (09:00)
[2021-10-06] MEDS ORDERED: amLODIPine BESYLATE 5 MG TAB PO SCH (09:00)
[2021-10-06] MEDS ORDERED: MULTIVITAMIN TAB PO SCH (09:00)
--- NOTE | 2021-10-06 10:57 | Surgery Progress Note ---
Date of Service October 06, 2021 Assessment & Plan (1) Acute appendicitis: Plan: 41 yr old man s/p lap appendectomy for acute appendicits. Doing well. Will discharge home today. Admission and Anticipated Discharge Date Admission Date: October 06, 2021 Subjective POD#1 lap appy. Feels well. Pain improved. Still sore. Eating OK. No nausea. Passing flatus but no bowel movement. Physical Exam Constitutional: WD/WN, vitals as above Eyes: PERRL, conjunctivae normal, anicteric sclerae ENMT: external ear and nose normal, oropharynx normal Neck: normal visual inspection and trachea midline Respiratory: normal respiratory effort, lungs clear to auscultation Cardiovascular: RRR, no murmur, no edema Gastrointestinal (Abdomen): Inspection/Auscultation: abdomen normal to inspection, normal bowel sounds and + abdominal surgical incision (dressings clean); abdomen not distended Percussion/Palpation: + abdomen tender (mild at incision) and abdomen soft Musculoskeletal: no cyanosis or clubbing, extremities motor strength 5/5 Neurologic: moves all extremities and awake Psychiatric: A+Ox3, euthymic affect Results & Data ([facility]) Vital Signs (Past 12 Hours) Vital Signs Temp Pulse Pulse Pulse Resp BP Pulse Ox 10/06/21 07:13 36.5 C 73 16 120/70 96 10/06/21 02:45 36.7 C 86 16 122/69 94 10/06/21 01:45 36.5 C 73 16 119/71 93 10/06/21 01:15 36.5 C 70 16 118/72 91 10/06/21 00:45 36.5 C 71 16 118/74 93 10/06/21 00:35 71 13 113/71 93 10/06/21 00:25 36.6 C 70 15 125/77 93 10/06/21 00:15 70 13 124/78 99 10/06/21 00:05 70 15 129/82 99 10/05/21 23:59 36.1 C L 73 14 124/78 99
--- NOTE | 2021-10-06 10:58 | Discharge Summary ---
Date of Service October 06, 2021 Admission HPI Per Admitting Provider 41 yr old man who presents to the ER complaining of right sided abdominal pain of 1 days duration (started 8:30 pm last hair). Worse if he bends over, 4-5 / 10 in severity. Thought he ate something bad. Was able to sleep and then went to work today. No similar episodes. No nausea or vomiting. Tried ibuprofen with no relief. No anorexia. Pain is sharp, stabbing, radiates through abdomen. Persisted at work all day today. Hurt if he took a deep breath in. Came in for evaluation. In ER, Ct scan read as acute appendicitis. Admission Exam (Per Admitting) Constitutional WD/WN, vitals as above Eyes PERRL, conjunctivae normal, anicteric sclerae ENMT external ear and nose normal, oropharynx normal Neck normal visual inspection and trachea midline Respiratory normal respiratory effort, lungs clear to auscultation Cardiovascular RRR, no murmur, no edema Gastrointestinal (Abdomen) Inspection/Auscultation: abdomen normal to inspection, normal bowel sounds and + abdominal surgical incision (dressings clean); abdomen not distended Percussion/Palpation: + abdomen tender (mild at incision) and abdomen soft Musculoskeletal no cyanosis or clubbing, extremities motor strength 5/5 Neurologic moves all extremities and awake Psychiatric A+Ox3, euthymic affect Discharge Data Consultations 10/05/21 21:30 Consult General Surgery Stat Procedures Performed Operation Date: 10/05/21 23:00 Actual Procedures p Laparoscopic Appendectomy - Maxine Pereira MD Hospital Course (1) Acute appendicitis: 41 yr old man s/p lap appendectomy for acute appendicits. Doing well. Will discharge home today.
== END 2021-10-06 14:35 | disposition home or self-care (01) ==
LOC: ED 18:54 → OR 22:20 → 3N 22:20